=== PATIENT | female | born 1945 | race Caucasian/White ===

== ENCOUNTER 2019-05-16 12:14 | Emergency (ER) | payer MEDICARE, SELFPAY ==
--- NOTE | 2019-05-16 12:22 | ED.GENADULT ---
HPI - General Adult General Chief complaint: Dizziness Stated complaint: lightheaded Time Seen by Provider: 05/16/19 12:23 Source: patient Mode of arrival: EMS Limitations: no limitations History of Present Illness HPI narrative: A 74 y/o female, with a PMHx of silent SZ, presents to the ED, via EMS, with c/o lightheadedness. Per EMS, pt had a near syncopal episode in the aisle at [facility]. Pt was lowered to the ground with the assistance of another customer. Upon EMS arrival, pt was diaphoretic and had an initial systolic reading in the 80s. Pt states that she feels okay now. Pt is on Keppra 2000 mg BID and follows up with Dr. Mon. Pt has been taking her medications as prescribed. Pt's last SZ occured a few months ago. She denies CP, bladder incontinence, and bowel incontinence. Related Data Allergies Allergy/AdvReac Type Severity Reaction Status Date / Time No Known Allergies Allergy Unverified 10/27/15 10:27 Review of Systems Review of Systems: All systems reviewed & are unremarkable except as noted in HPI and below Constitutional: Comments: Reports: lightheadedness, diaphoresis Cardiovascular: Cardiovascular: Denies chest pain Gastrointestinal: Comments: Denies: bowel incontinence Genitourinary: Comments: Denies: bladder incontinence PMF Past Medical History Medical History (Updated 05/16/19 @ 14:57 by Deny Guan MD) Seizures Surgical History Surgical History (Updated 05/16/19 @ 12:46 by Ester Atkins) H/O eye surgery corneal replacement H/O right mastectomy H/O: hysterectomy Hx of tonsillectomy Social History Social History (Updated 05/16/19 @ 12:46 by Ester Atkins) Smoking status: Never smoker Gender identity (if verbalized by the patient): Female Comments PCP: Dr. Henao Exam Narrative: Exam Narrative: GENERAL: Well-appearing, well-nourished, and in no acute distress. HEAD: Normocephalic, atraumatic. EYES: PERRLA and EOMI. ENT: Nares clear, Mucous membranes moist. NECK: Supple. CHEST: Clear to auscultation. No respiratory distress. HEART: Regular rate and rhythm. No murmur heard. Normal peripheral pulses. ABDOMEN: Soft, non tender, non distended, normal active bowel sounds. EXTREMITIES: Normal range of motion. No edema. SKIN: Warm, dry, no rash. NEURO: No focal deficits. Alert and oriented x3. PSYCH: Normal mood and affect. Course Course Emergency Course: pt states she is feeling much better, advised to continue home medication ,take antibiotic as prescribed. Vital Signs Vital signs: Vital Signs Temperature 37.1 C 05/16/19 12:47 Pulse Rate 71 05/16/19 12:47 Respiratory Rate 18 05/16/19 12:47 Blood Pressure 123/50 L 05/16/19 12:47 Pulse Oximetry 99 05/16/19 12:47 Temperature 37.1 C 05/16/19 12:47 Pulse Rate 71 05/16/19 12:47 Respiratory Rate 18 05/16/19 12:47 Blood Pressure 123/50 L 05/16/19 12:47 Pulse Oximetry 99 05/16/19 12:47 Medical Decision Making Vital Signs Vital Signs: Vital Signs Temperature 37.1 C 05/16/19 12:47 Pulse Rate 71 05/16/19 12:47 Respiratory Rate 18 05/16/19 12:47 Blood Pressure 123/50 L 05/16/19 12:47 Pulse Oximetry 99 05/16/19 12:47 Temperature 37.1 C 05/16/19 12:47 Pulse Rate 71 05/16/19 12:47 Respiratory Rate 18 05/16/19 12:47 Blood Pressure 123/50 L 05/16/19 12:47 Pulse Oximetry 99 05/16/19 12:47 Lab Data Result diagrams: 05/16/19 13:02 05/16/19 13:02 Labs: Lab Results 05/16/19 05/16/19 05/16/19 Range/Units 13:02 13:02 13:02 WBC 9.5 (4.5-10.0) K/mm3 RBC 3.89 L (4.2-5.4) M/mm3 Hgb 12.3 (12.0-15.0) g/dL Hct 38.3 (37.0-47.0) % MCV 98.5 (80-100) fl MCH 31.6 (26-34) pg MCHC 32.1 (32-36) g/dl RDW 11.3 L (11.5-14.5) % Plt Count 271 (150-375) k/mm3 MPV 9.6 (7.4-10.4) fl Immature Gran % (Auto) 0.2 (0-0.5) % Neut % (Auto) 76.0 H (45.5-73.1) % Lymph % (Auto) 1
--- NOTE | 2019-05-16 12:33 | ECG_ITS ---
Measurements Intervals [place] Rate: 66 P: 33 SC: 140 QRS: -1 QRSD: 108 T: 34 QT: 417 QTc: 438 Interpretive Statements SINUS RHYTHM WITH MARKED SINUS ARRHYTHMIA NORMAL ECG Electronically Signed On 05-16-2019 13:49:40 CDT by Niko Gatica D.O.
[2019-05-16 12:47] VITALS: BP 123/50; PULSE 71; RESP 18; TEMP 37.1; O2SAT 99
[2019-05-16 13:12] LABS: Basophils Absolute Auto 0.1 K/mm3 (0.0-0.1); Basophils Percent Auto 0.5 % (0.2-1.2); Eosinophils Absolute Auto 0.3 K/mm3 (0-0.3); Eosinophils Percent Auto 2.7 % (0-4.4); Hematocrit 38.3 % (37.0-47.0); Hemoglobin 12.3 g/dL (12.0-15.0); Immature Granulocyte Absolute 0.02 K/mm3 (0.00-0.031); Immature Granulocyte Percent A 0.2 % (0-0.5); Lymphocytes Absolute Auto 1.19 K/mm3 (0.9-3.2); Lymphocytes Percent Auto 12.5 % (18.3-44.2); Mean Corpuscular HGB Conc 32.1 g/dl (32-36); Mean Corpuscular Hemoglobin 31.6 pg (26-34); Mean Corpuscular Volume 98.5 fl (80-100); Mean Platelet Volume 9.6 fl (7.4-10.4); Monocytes Absolute Auto 0.8 K/mm3 (0.1-0.6); Monocytes Percent Auto 8.1 % (2.6-8.5); Neutrophils Absolute Auto 7.3 K/mm3 (1.3-6.7); Platelet Count Result 271 k/mm3 (150-375); Red Blood Count 3.89 M/mm3 (4.2-5.4); Red Cell Distribution Width 11.3 % (11.5-14.5); White Blood Count 9.5 K/mm3 (4.5-10.0)
[2019-05-16 13:25] LABS: Alanine Aminotransferase 60 U/L (4-35); Albumin Level 4.3 g/dL (3.5-5.1); Alkaline Phosphatase 88 U/L (38-126); Aspartate Amino Transferase 49 U/L (14-36); Bilirubin,Total 0.5 mg/dL (0.2-1.3); Blood Urea Nitrogen 14 mg/dL (7-17); Calcium 9.2 mg/dL (8.4-10.2); Carbon Dioxide 31 mmol/L (22-30); Chloride 101 mmol/L (98-107); Estimated CRCL calculation 50 ml/min; Estimated Glomerular Filt Rate > 60; Glucose 119 mg/dL (65-105); Potassium 4.3 mmol/L (3.4-5.0); Sodium 136 mmol/L (137-145)
--- NOTE | 2019-05-16 13:29 | PC.NURSE ---
Not enough urine to run UA. Pt. denies having to void. Pt. to be straight cathed, primary RN and techs aware.
[2019-05-16 14:02] LABS: Add Urine Microscopic? YES; Appearance Urine Clear (Clear); Bilirubin Urine Negative (Negative); Blood Urine Negative (Negative); Calcium Oxalate Crystals Urine Present /hpf; Glucose Urine UA Negative (Negative); Hyaline Casts Urine 50+ /lpf; Ketones Urine Trace mg/dL (Negative); Leukocyte Esterase Ur Negative LEU/UL (Negative); Mucus Urine Few /lpf; Nitrate Urine Positive (Negative); Protein Urine 2+ mg/dL (Negative); RBC Urine 0-2 /hpf (0-2); Specific Grav Ur 1.027 (1.001-1.035); Squamous Epithelial Cell Urine Few /hpf (Few); WBC Urine 0-3 /hpf
[2019-05-16 14:04] LABS: Color Urine Dark Orange (Yellow)
[2019-05-16 15:29] VITALS: BP 125/51; PULSE 70; RESP 23; O2SAT 100
== END 2019-05-16 15:30 | disposition home or self-care (01) ==
PROVIDERS: Emergency Provider Family Medicine
DX: G40.909 Epilepsy, unspecified, not intractable, without status epilepticus (principal); Z90.11 Acquired absence of right breast and nipple; Z94.7 Corneal transplant status; N39.0 Urinary tract infection, site not specified
CPT/HCPCS: 36415; 80053; 81001; 85025; 93005; 99283

== ENCOUNTER → 2021-03-27 13:37 | Outpatient (CLI) | payer MEDICARE, SELFPAY ==
--- NOTE | ~2021-03-27 | DEXA_ITS ---
Bone Density Report Name: GABRIEL GUNDERSON Age: 76 Sex: Female Ethnicity: White Date of : 1945 Indication: postmenopausal; screening for osteoporosis; parental hip fracture; height loss; seizure disorder; asthma or emphysema; hysterectomy; Referring Provider: GUILLERMO Study: Bone densitometry was performed. Exam Date: March 27, 2021 Accession number: [id number] Bone Density: Region BMD T-score Z-score Classification AP Spine (L1, L4) 1.026 -0.1 2.5 Normal Femoral Neck (Left) 0.699 -1.4 0.9 Osteopenia Total Hip (Left) 0.715 -1.9 0.1 Osteopenia Femoral Neck (Right) 0.698 -1.4 0.9 Osteopenia Total Hip (Right) 0.723 -1.8 0.2 Osteopenia Total Hip Mean 0.719 -1.9 0.2 Osteopenia World Health Organization criteria for BMD impression classify patients as: Normal (T-score at or above -1.0), Osteopenia (T-score between -1.0 and -2.5), or Osteoporosis (T-score at or below -2.5). 10-year Fracture Risk(1): Major Osteoporotic Fracture 20% Hip Fracture 11% Reported Risk Factors: [place] (), Neck BMD=0.698, BMI=25.8, parental fracture (1) FRAX(R) Version 3.08. Fracture probability calculated for an untreated patient. Fracture probability may be lower if the patient has received treatment. Clinical Information Provided by Patient: Parent has had a hip fracture Has used the following medications: Vitamin D, Calcium, MTV Has the following medical conditions: Any Seizure Disorders, Asthma or Emphysema, Hysterectomy, breast cancer age 41, pre cancer ovaries and uterus Patient maximum height was 65.75 Menopause Age: 43 No regular weight bearing exercise Does not regularly consume dairy products Drinks caffeinated beverages Onset of menses at age 9 Number of children 3 Impression: The patient has low bone mass, based on the Left Total Hip T-score. The patient has an estimated ten-year risk of hip fracture of 11% and an estimated ten-year risk of major fracture of 20%, based on the WHO FRAX algorithm. The patient has risk factors, including: parental hip fracture. Discussion: BONE DENSITY IS LOW AT ONE OR MORE SKELETAL SITES. THE PATIENT'S BMD AND CLINICAL RISK FACTORS CONTRIBUTE TO THIS PATIENT'S HIGH RISK OF FRACTURE. This patient's lowest T-score is low at one or more skeletal sites. It meets the World Health Organization's (WHO) criteria for ?low bone mass? (T-score between -1.0 and -2.5). The patient's 10-year risk of hip fracture and 10 year risk of a major osteoporotic fracture as calculated by FRAX exceeds the threshold where pharmacological therapy is recommended by the National Osteoporosis Foundation (NOF). However, all treatment decisions require clinical judgment and consideration of individual patient factors, including patient preferences, comorbidities, previous drug use, risk fa
--- NOTE | ~2021-03-27 | MM_ITS ---
EXAMINATION: MM screening adrien LT w nicolle HISTORY: Screening left mammogram history of right mastectomy TECHNIQUE: Craniocaudal and mediolateral oblique 3-D tomosynthesis images were obtained and synthetic 2-D images were generated. CAD analysis was submitted and interpreted. COMPARISON: No prior mammogram is available for comparison at this institution. BREAST PARENCHYMAL COMPOSITION: There are scattered areas of fibroglandular density. FINDINGS: Scattered benign-appearing calcifications are present. There is no evidence of suspicious m ass, calcification, or architectural distortion to suggest malignancy. There has been no suspicious i nterval change. IMPRESSION: 1. No mammographic evidence of malignancy. 2. Recommend routine screening mammography in one year. BI-RADS Category 2: Benign finding(s). Reviewed, dictated and finalized at location A. NSTITCH SEWING MACHINE OPERATOR
== END ==
DX: Z12.31 Encounter for screening mammogram for malignant neoplasm of breast (principal); Z78.0 Asymptomatic menopausal state; M85.851 Other specified disorders of bone density and structure, right thigh; M85.852 Other specified disorders of bone density and structure, left thigh
CPT/HCPCS: 77063; 77067; 77080

== ENCOUNTER 2022-03-14 16:49 | Observation (INO) | payer MEDICARE, SELFPAY ==
[2022-03-14] VITALS (28 sets, daily range): BP systolic 100–171; BP diastolic 53–113; PULSE 57–80; RESP 10–19; TEMP 36.2–36.8; O2SAT 94–100; BMI 27.7
--- NOTE | ~2022-03-14 | XR_ITS ---
XR chest 2V DATE: 03/14/2022 17:39 INDICATION: Unsteady gait, dizziness x1 day TECHNIQUE: AP and lateral views COMPARISON: None FINDINGS: Normal heart size. Aortic arch calcification. No hilar or mediastinal enlargement. No pulmo nary infiltrate or consolidation, pleural effusion or pulmonary vascular congestion or pneumothorax i s detected. Surgical clips overlying right breast and axillary area. IMPRESSION: No active cardiopulmonary disease Aortic atherosclerosis Reviewed, dictated and finalized at location A. E ANALYST
--- NOTE | ~2022-03-14 | CT_ITS ---
EXAMINATION: CTA BRAIN/CAROTID DATE: 03/14/2022 18:41 INDICATION: Dizziness, weakness and unsteady gait. TECHNIQUE: Computed tomographic angiography (CTA) of the head and neck was performed with 100 mL Omni paque-350 intravenous contrast. Multiplanar reconstructions and maximum intensity projection 3D-recon structions of the carotid arteries and of the intracranial arteries were created by the technologist on a separate workstation. Precontrast CT of the head was also obtained. Automated exposure control and iterative reconstruction technique were employed.The dose-length product was 1672.45 mGy-cm. COMPARISON: None. FINDINGS: Carotid arteries: Visualized aortic arch is normal in caliber with no dissection. There is small amount of atherosclero tic plaque with 0% stenosis of the right carotid bulb relative to normal distal artery lumen diameter (NASCET criteria). There is small amount of atherosclerotic plaque with 0% stenosis of the left suazo tid bulb relative to normal distal artery lumen diameter. Mild biapical pleural-parenchymal scarring. Calcified mediastinal lymph node consistent with old granulomatous disease. There is a superior medi astinum is otherwise unremarkable. Cervical soft tissues are unremarkable. Severe cervical spondylosi s with 2 mm anterolisthesis of C3 on C4 with fusion across the right C3-C4 uncovertebral and facet luis carlos ints. Head: No acute intracranial hemorrhage, acute infarction or abnormal extra axial fluid collection. Prominen t streak artifact related to a metallic likely embolization coil located along the lateral margin of the distalmost left internal carotid artery. There is minimal scattered white matter hypoattenuation consistent with chronic small vessel ischemic disease. Symmetric prominence of the sulci and subarach noid spaces overlying the convexities consistent with mild to moderate age-appropriate diffuse cerebr al volume loss. Ventricles are normal and symmetric. No mass/mass effect. Changes of bilateral intrao cular lens replacement. The orbits, paranasal sinuses and mastoid air cells are normal. No abnormally enhancing brain lesions on the CT angiogram portion of the examination. Intracranial arteries Mild atherosclerotic plaque with no hemodynamically significant stenosis at the bilateral carotid sip hons. 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 Normal patent bilateral P1 se gments arise from the normal basilar artery. Bilateral A1 segments are also patent. A portion of the distalmost left internal carotid artery is obscured by streak artifact from the embolization coils. N o aneurysms identified. No evident hemodynamically significant stenosis identified. Cerebral arteria l arborization appears symmetric. IMPRESSION: 1. Small amount of atherosclerotic plaque with 0% stenosis of the right and left carotid bulbs relati ve to normal distal artery lumen diameter (NASCET criteria). 2. Likely embolization coil in the region of the distal most supraclinoid portion of the left interna l carotid artery. Otherwise unremarkable cerebral CT angiogram. 3. Age-related changes in the brain. No acute intracranial process. Reviewed, dictated and finalized at location A. SER SALES IMPRESSION: 1. Small amount of atherosclerotic plaque with 0% stenosis of the right and lef t carotid bulbs relative to normal distal artery lumen diameter (NASCET criteri a). 2. Likely embolization coil in the region of the distal most supraclinoid porti on of the left internal carotid artery. Otherwise unremarkable cerebral CT colleen ogram. 3. Ag
--- NOTE | 2022-03-14 16:56 | ECG_ITS ---
Measurements Intervals [place] Rate: 63 P: 40 ND: 138 QRS: 10 QRSD: 98 T: 47 QT: 395 QTc: 407 Interpretive Statements SINUS RHYTHM BASELINE ARTIFACT- II, III, AVR, AVL, AVF NORMAL ECG COMPARED TO ECG 05/16/2019 12:21:18 NO SIGNIFICANT CHANGES Electronically Signed On 03-14-2022 20:50:43 SCREEN PRINTING MACHINE OPERATOR HELPER by Niko Gatica D.O.
--- NOTE | 2022-03-14 17:19 | ED.GENADULT ---
HPI - General Adult General Chief complaint: Weakness <Milind Vargas MD - Last Filed: 03/14/22 19:09> Stated complaint: weakness <Milind Varags MD - Last Filed: 03/14/22 19:09> Time Seen by Provider: 03/14/22 17:00 <Milind Vargas MD - Last Filed: 03/14/22 19:09> History of Present Illness HPI narrative: 77-year-old female presenting to the emergency department for evaluation of dizziness. Patient reports that yesterday morning she woke up she was having some mild symptoms but since then the dizziness has continued to worsen. Patient states that she does have a sensation of movement and that it is worsened to the point where she has difficulty ambulating. Patient states when she is lying still she has no complaints. Patient denies any associated nausea vomiting. Patient denies any abdominal pain constipation diarrhea or pain with urination. Patient reports she does not normally drink much water but she has been eating and drinking at her normal baseline. Patient denies any associated numbness or weakness. Patient denies any falls or injuries. Patient reports she does have a history of an aneurysm. <Milind Vargas MD - Last Filed: 03/14/22 19:09> Related Data Home medications: Home Medications Medication Instructions Recorded Confirmed No Home Medications 10/07/21 10/07/21 <Milind Vargas MD - Last Filed: 03/14/22 19:09> Allergies/adverse reactions: Allergies Allergy/AdvReac Type Severity Reaction Status Date / Time No Known Allergies Allergy Unverified 10/07/21 11:07 <Milind Vargas MD - Last Filed: 03/14/22 19:09> Review of Systems Review of Systems: CONSTITUTIONAL: Denies fever, chills, or sweats. EYES: Denies visual changes, redness, or discharge. ENT: Denies rhinorrhea, congestion, sore throat, or otalgia. CARDIOVASCULAR: Denies chest pain, palpitations, or edema. RESPIRATORY: Denies cough or dyspnea. GASTROINTESTINAL: Denies abdominal pain, nausea, vomiting, or diarrhea. GENITOURINARY: Denies dysuria or hematuria. SKIN: Denies rash or itching. MUSCULOSKELETAL: Denies back pain, joint pain, or myalgia. NEUROLOGIC: Denies headache, numbness, or weakness. See HPI <Milind Vargas MD - Last Filed: 03/14/22 19:09> [facility] Past Medical History Medical History: Medical History (Updated 03/14/22 @ 19:08 by Mliind Vargas MD) History of stress test (~05/2021) History of torn meniscus of knee (~1999) Seizures <Milind Vargas MD - Last Filed: 03/14/22 19:09> Surgical History Surgical History: Surgical History (Updated 06/24/21 @ 10:56 by Larissa Cabrera MA) H/O eye surgery corneal replacement H/O right mastectomy (~08/1986) H/O: hysterectomy (~09/1989) History of appendectomy (~2018) History of cholecystectomy (~01/2016) Hx of tonsillectomy S/P coil embolization of cerebral aneurysm (~08/2012) <Milind Vargas MD - Last Filed: 03/14/22 19:09> Social History Social History: Social History (Updated 06/24/21 @ 10:57 by Larissa Cabrera MA) Smoking status: Never smoker Alcohol intake: never Substance use: never Gender identity (if verbalized by the patient): Female <Milind Vargas MD - Last Filed: 03/14/22 19:09> Exam Narrative: APPEARANCE: Well appearing, no pain, no distress, well-nourished. HEAD: normocephalic, atraumatic. EYES: PERRLA/EOMI, conjunctivae clear. NOSE: Normal no drainage EARS:TMS clear with good light reflex. THROAT: Pharynx clear, no exudate. NECK: Supple. No adenopathy, no masses. RESPIRATORY: Airway patent, respirations nonlabored. Clear to auscultation bilaterally, no rales, rhonchi, wheezing. CARDIOVASCULAR: Regular rate and rhythm without murmurs rubs or gallops. ABDOMINAL: Soft, nontender, nondistended, normal bowel sounds MUSCULOSKELETAL: Moves all extremities. Strength/ROM intact, No edema, No calf tenderness. NEURO: Alert. Cranial nerves II through XII intact. Grossly i
[2022-03-14] MEDS: SODIUM CHLORIDE 0.9% IV 1,000 ML 500 ML IV CONT (17:27)
[2022-03-14] MEDS: MECLIZINE HCL 25 MG TABLET PO (17:29)
[2022-03-14 17:54] LABS: Basophils Absolute Auto 0.1 K/mm3 (0.0-0.1); Basophils Percent Auto 1.1 % (0.2-1.2); Eosinophils Absolute Auto 0.2 K/mm3 (0-0.3); Eosinophils Percent Auto 3.8 % (0-4.4); Hemoglobin 10.7 g/dL (12.0-15.0); Immature Granulocyte Absolute 0.01 K/mm3 (0.00-0.031); Immature Granulocyte Percent A 0.2 % (0-0.5); Lymphocytes Percent Auto 31.3 % (18.3-44.2); Mean Corpuscular HGB Conc 31.5 g/dl (32-36); Mean Corpuscular Hemoglobin 31.3 pg (26-34); Mean Corpuscular Volume 99.4 fl (80-100); Mean Platelet Volume 9.6 fl (7.4-10.4); Monocytes Absolute Auto 0.5 K/mm3 (0.1-0.6); Monocytes Percent Auto 7.8 % (2.6-8.5); Neutrophils Absolute Auto 3.6 K/mm3 (1.3-6.7); Neutrophils Percent Auto 55.8 % (45.5-73.1); Platelet Count Result 270 k/mm3 (150-375); Red Blood Count 3.42 M/mm3 (4.2-5.4); Red Cell Distribution Width 11.8 % (11.5-14.5); White Blood Count 6.4 K/mm3 (4.5-10.0)
[2022-03-14 18:00] LABS: Appearance Urine Clear (Clear); Bilirubin Urine Negative (Negative); Blood Urine Negative (Negative); Color Urine Yellow (Yellow); Glucose Urine UA Negative (Negative); Ketones Urine Negative (Negative); Leukocyte Esterase Ur Negative LEU/UL (Negative); Nitrate Urine Negative (Negative); Protein Urine Negative (Negative); Specific Grav Ur 1.015 (1.001-1.035); Urobilinogen Urine 0.2 mg/dL (<2.0)
[2022-03-14 18:01] LABS: Add Urine Microscopic? NO
[2022-03-14 18:04] LABS: Alanine Aminotransferase 25 U/L (6-35); Albumin Level 3.8 g/dL (3.5-5.1); Alkaline Phosphatase 75 U/L (38-126); Anion Gap 1 mmol/L (8-16); Aspartate Amino Transferase 31 U/L (14-36); Bilirubin,Total 0.2 mg/dL (0.2-1.3); Blood Urea Nitrogen 14 mg/dL (7-17); Calcium 8.1 mg/dL (8.4-10.2); Carbon Dioxide 28 mmol/L (22-30); Chloride 103 mmol/L (98-107); Estimated Glomerular Filt Rate 60; Glucose 96 mg/dL (65-110); Potassium 4.2 mmol/L (3.4-5.0); Sodium 132 mmol/L (137-145)
[2022-03-14 18:27] LABS: Influenza A QL RT-PCR Negative (Negative); Influenza B QL RT-PCR Negative (Negative); RSV RNA, RT-PCR Negative (Negative); SARS-CoV-2 RNA PCR Negative
--- NOTE | 2022-03-14 21:00 | PM.IMHP ---
H&P: HPI History of Present Illness Date/Time: 03/14/22 21:00 Chief Complaint: Dizziness Narrative: This is a 77-year-old female with past medical history significant for seizure disorder, degenerative joint disease. Patient presents to the emergency room after having several episodes throughout the day on unstable gait, feeling lightheaded, however patient denies any vertigo, no nausea, no vomiting, no changes to her vision, no syncope, no near syncope,no headaches, no focal sensorimotor deficit, no fevers, no rigors, no chills, no no pain or burning with urination, has been in her usual state of health up until this episode. Patient also noted to be unstable on her gait states walking like a drunk preliminary workup was significant for A chest x-ray was reported as: FINDINGS: Normal heart size. Aortic arch calcification. No hilar or mediastinal enlargement. No pulmonary infiltrate or consolidation, pleural effusion or pulmonary vascular congestion or pneumothorax is detected. Surgical clips overlying right breast and axillary area. IMPRESSION: No active cardiopulmonary disease Aortic atherosclerosis? Patient tested negative for influenza type A, influenza type B RSV and COVID-19 Review of Systems Review of Systems: Gait instability, lightheadedness. Constitutional: Constitutional: Denies chills, Denies fatigue, Denies fever(s), Denies malaise, Denies night sweats, Denies poor appetite and Denies weakness Eyes: Eyes: Denies change in vision, Denies diplopia, Denies floaters, Denies loss of peripheral vision, Denies loss of vision, Denies other visual disturbances and Denies spots in vision ENT: Denies dysphagia, Reports dizziness, Denies nasal congestion, Denies nasal discharge, Denies odynophagia and Reports disequilibrium Cardiovascular: Cardiovascular: Denies chest pain, Denies leg edema, Reports lightheadedness, Denies radiating jaw, neck or arm pain and Denies palpitations Respiratory: Respiratory: Denies chest congestion, Denies cough, Denies pain on inspiration, Denies dyspnea and Denies dyspnea on exertion Gastrointestinal: Gastrointestinal: Denies abdominal pain, Denies dyspepsia, Denies diarrhea, Denies nausea and Denies vomiting Genitourinary: Genitourinary: Denies dysuria Musculoskeletal: Musculoskeletal: Denies joint swelling and Denies muscle weakness Integumentary/Breasts: Skin/Breast: Denies rash Neurologic: Reports dizziness, Denies focal weakness and Denies Sensory deficit (Neuro) Psychiatric: Psychiatric: Reports no additional psychiatric complaints and Reports as per HPI Endocrine: Endocrine: Denies cold intolerance, Denies flushing, Denies heat intolerance, Denies polyphagia, Denies polydipsia and Denies palpitations Hematologic/Lymphatic: Hematologic/Lymphatic: Reports no additional hematologic/lymphatic complaints and Reports as per HPI Allergic/Immunologic: Allergic/Immunologic: Reports no additional allergic/immunologic complaints and Reports as per HPI PMFSH Past Medical History Medical History (Updated 03/15/22 @ 00:14 by Romulo Carballo MD) History of stress test (~05/2021) History of torn meniscus of knee (~1999) Seizures Surgical History Surgical History (Updated 06/24/21 @ 10:56 by Larissa Cabrera MA) H/O eye surgery corneal replacement H/O right mastectomy (~08/1986) H/O: hysterectomy (~09/1989) History of appendectomy (~2018) History of cholecystectomy (~01/2016) Hx of tonsillectomy S/P coil embolization of cerebral aneurysm (~08/2012) Family History Family History (Updated 03/14/22 @ 23:08 by Don Guthrie RN) Mother Asthma History of blood clots Grandparent Diabetes mellitus Social History Social History (Updated 06/24/21 @ 10:57 by Larissa Cabrera MA) Smoking status: Never smoker Second hand tobacco smoke exposure: Yes Alcohol intake: never Substance use: never Substance use type: does not use Lack of Transportation: No Lack of Fo
--- NOTE | 2022-03-14 22:32 | ADMGEN ---
This patient, Catarina Lai, was admitted to [facility] Surg Room 331-02. Patient/family oriented to hospital policies and general routines including ID bracelet, bed and alarms, visiting hours, pain management, procedures, bathroom and other care routines, personal items, smoking policy, room service/diet, and visiting hours. Information on how to activate the Rapid Response Team has been discussed. Patient/Family are encouraged to report perceived risks to care and to ask questions if they do not understand what they are told or what they should do.
[2022-03-14] MEDS: levETIRAcetam 500 MG TABLET 2000 MG PO (23:43)
[2022-03-14] MEDS: lamoTRIgine 100 MG TABLET PO (23:44)
[2022-03-15] VITALS (13 sets, daily range): BP systolic 121–134; BP diastolic 51–80; PULSE 57–88; RESP 16–18; TEMP 36.2–36.5; O2SAT 97–99
--- NOTE | 2022-03-15 | ECHO_ITS ---
Patient Info Name: Catarina Lai Age: 77 years : 1945 Gender: Female Ht: 63 in Wt: 156 lbs BSA: 1.79 m2 HR: 62 bpm BP: 121 / 51 mmHg Heart Rhythm: Sinus Rhythm Technical Quality: Good Exam Date: 03/15/2022 9:25 AM Exam Location: [facility] Pulmonary Patient Status: Inpatient Admit Date: 03/14/2022 Staff Ordering Physician: Michelle Mcneill APRN Attending Provider: Romulo Carballo MD Referring Physician: Charito PHAN; Exam Type: CA echo doppler w bubble study Study Info Complete two-dimensional, color flow and Doppler transthoracic echocardiogram is performed with agitated saline. Contrast/Agitated Saline Contrast/Ag. Saline: Agitated Saline Amount: 8.00 ml Summary 1. Left ventricular chamber dimension is normal. 2. Left ventricular systolic function is normal, estimated at 60-65%. 3. The left ventricular diastolic function is normal. 4. Right ventricular systolic function is normal. 5. Intact interatrial septum visualized by color flow and agitated saline imaging. Negative bubble study. 6. There is trace mitral valve regurgitation. 7. There is mild tricuspid valve regurgitation. Left Ventricle Left ventricular chamber dimension is normal. Left ventricular systolic function is normal, estimated at 60-65%. There is no increased left ventricular wall thickness. The left ventricular diastolic function is normal. Right Ventricle Right ventricular chamber dimension is normal. Right ventricular systolic function is normal. Left Atria Left atrial chamber dimension is normal. Right Atria Right atrial chamber dimension is normal. Atrial Septum Intact interatrial septum visualized by color flow and agitated saline imaging. Negative bubble study. Aortic Valve The aortic valve is probable trileaflet. There is no aortic valve stenosis. There is no aortic valve regurgitation. Pulmonic Valve The pulmonic valve is not well visualized. Mitral Valve The mitral valve has normal leaflets. There is no mitral valve stenosis. There is trace mitral valve regurgitation. Tricuspid Valve The tricuspid valve leaflets are normal. There is mild tricuspid valve regurgitation. Pericardium/Pleural There is no pericardial effusion. Inferior Vena Cava Normal inferior vena cava with >50% collapse upon inspiration consistent with normal right atrial pressure. Aorta The aortic root size at the sinus of Valsalva is normal. Left Ventricular Outflow Tract Name Value Normal LVOT 2D LVOT Diameter 2.0 cm LVOT Doppler LVOT Peak Gradient 4 mmHg LVOT Mean Gradient 2 mmHg LVOT VTI 21 cm LVOT VTI/AV VTI Ratio 0.6 LVOT Stroke Volume 69 ml LVOT CO 4.2 l/min LVOT CI 2.4 l/min/m2 Pulmonic Valve Name Value Normal -------
[2022-03-15] MEDS: FLUTICASONE/SALMETEROL 115-21 MCG INHALER 1 PUFF 2 PUFF INHALATION ×2 (08:26→21:22)
[2022-03-15] MEDS: DICLOFENAC SOD 25 MG TABLET.EC 50 MG PO ×3 (09:10→16:56)
[2022-03-15] MEDS: FLUOROMETHOLONE 0.1% OP SUSP 5 ML BTL 1 DROP RIGHT EYE (09:11)
[2022-03-15] MEDS: lamoTRIgine 100 MG TABLET PO ×3 (09:11→16:56)
[2022-03-15] MEDS: levETIRAcetam 500 MG TABLET 2000 MG PO ×2 (09:12→20:56)
[2022-03-15] MEDS: MECLIZINE HCL 25 MG TABLET PO ×2 (09:18→20:56)
[2022-03-15 09:25] LABS: Hematocrit 33.8 % (37.0-47.0); Hemoglobin 10.9 g/dL (12.0-15.0); Mean Corpuscular HGB Conc 32.2 g/dl (32-36); Mean Corpuscular Hemoglobin 31.4 pg (26-34); Mean Corpuscular Volume 97.4 fl (80-100); Mean Platelet Volume 9.5 fl (7.4-10.4); Platelet Count Result 278 k/mm3 (150-375); Red Blood Count 3.47 M/mm3 (4.2-5.4); Red Cell Distribution Width 11.8 % (11.5-14.5); White Blood Count 4.7 K/mm3 (4.5-10.0)
[2022-03-15 09:36] LABS: Anion Gap 3 mmol/L (8-16); Blood Urea Nitrogen 10 mg/dL (7-17); Calcium 8.7 mg/dL (8.4-10.2); Carbon Dioxide 28 mmol/L (22-30); Chloride 109 mmol/L (98-107); Estimated CRCL calculation 42 ml/min; Estimated Glomerular Filt Rate 60; Glucose 101 mg/dL (65-110); Potassium 4.2 mmol/L (3.4-5.0); Sodium 140 mmol/L (137-145)
[2022-03-15 10:04] LABS: Vitamin D 25 Hydroxy 49.7 ng/mL
[2022-03-15 10:50] LABS: Folic Acid > 20.0 ng/mL (2.76->20)
[2022-03-15 13:56] LABS: Free T4 Free Thyroxine Reflex 1.06 ng/dL (0.78-2.19)
--- NOTE | 2022-03-15 15:31 | PM.IMPN ---
Progress Note: A&P Assessment and Plan (1) Dizziness: Code(s): R42 - Dizziness and giddiness Status: Acute Assessment and Plan: patient presented to the ED with c/o unsteady gait, feeling lightheaded and dizzy. The symptoms started on the day of admission. Family reports the patient appeared confused and had slurred/garbled speech. H/o cerebral aneurysm with coiling. 03/14/22 CT head & neck patent left aneurysm coil. No dissection, stenosis, or occlusion. MRI of the brain ordered and pending confirmation that the aneurysm coil is MRI compatible. Echocardiogram without right to left shunt. Consult PT/OT for evaluation. Orthostatic vitals daily Continue PRN meclizine. continue to monitor (2) Primary osteoarthritis of knees, bilateral: Code(s): M17.0 - Bilateral primary osteoarthritis of knee Status: Chronic Assessment and Plan: Tylenol as needed (3) Seizures: Code(s): R56.9 - Unspecified convulsions Status: Chronic Assessment and Plan: Chronic. Continue Keppra and Lamictal at home doses. Patient does not appear postictal. Check Keppra level. Plan CODE STATUS: FULL CODE Discharge disposition: home in 1-2 days Time Spent With Patient Time: All questions answered to the best of my ability. Time with patient: 25 - 35 minutes Subjective Date/time seen: 03/15/22 15:31 Interval history: Patient found sitting up in the bed. She reports feeling better today. She had some dizziness this morning that improved with meclizine. She ambulated to the bathroom and reports her gait was significantly improved. Her daughter is at bedside and reports the patient was slurring her speech and confused at home yesterday. She denies unilateral extremity weakness, paresthesia or vision changes. Her speech is clear and mentation is at baseline per patient and family. Review of Systems Review of Systems: All systems reviewed & are unremarkable except as noted in HPI and below Exam Narrative: General: No acute distress.? Well-developed older adult female sitting up in bed. Mental Status/Psych: Awake, alert and oriented x3. Speech clear and appropriate. Expressive mood and affect. Pleasant and cooperative. Skin: fair, warm, dry and intact without rashes or lesions. No open wounds. Good turgor.? HEENT: Normocephalic. Sclera is non-icteric. EOM intact. PERRL. No nystagmus. Grossly normal hearing. Oral mucosa pink and moist. Tongue midline. Oropharynx within normal limits. Neck: Supple. Thyroid without nodularity. Trachea midline. No JVD. Heart: S1 and S2 regular rate and rhythm. No murmurs, gallops, or rubs auscultated. Chest: Respirations even and unlabored. Lung sounds are clear to auscultation in all lobes bilaterally without wheezes, rhonchi, or rales. Abdomen: Soft, round and non-tender to palpation.? Bowel sounds present in all 4 quadrants. Extremities:? Grossly normal ROM all extremities. No edema. Radial and dorsalis pedis pulses +2 bilaterally. Neurological: No facial droop. No pronator drift. Intact finger to nose and heel to hernadez bilaterally. Cranial nerves 2-12 grossly intact.? Muscle strength 5/5 bilaterally and equal. No tremors or fasciculations. DTRs not assessed. Objective Data Vital Signs Vital Signs: Vital Signs - 24 hr 03/14/22 16:51 03/14/22 16:56 03/14/22 17:00 Temperature 98.0 F Pulse Rate 68 76 67 Respiratory Rate 16 Blood Pressure 156/69 H 156/69 H 171/79 H Pulse Oximetry 100 Oxygen Delivery Room Air 03/14/22 17:00 03/14/22 18:08 03/14/22 18:10 Temperature 98.2 F Pulse Rate 80 63 64 Respiratory Rate 15 10 L Blood Pressure 141/69 H 150/57 H Pulse Oximetry 100 100 Oxygen Delivery 03/14/22 18:15 03/14/22 18:46 03/14/22 17:30 Temperature 98.2 F Pulse Rate 62 71 70 Respiratory Rate 17 11 L 16 Blood Pressure 141/69 H Pulse Oximetry 100 95 100 Oxygen Delivery 03/14/22 19:00 03/14/22 19:15 03/14/22 19:23 Temp
[2022-03-15 20:45] LABS: Total Triiodothyronine (T3) 1.14 NG/ML (0.97-1.69)
[2022-03-16] VITALS (7 sets, daily range): BP systolic 113–122; BP diastolic 54–64; PULSE 59–103; RESP 18; TEMP 36.4; O2SAT 97–98
[2022-03-16] MEDS: DICLOFENAC SOD 25 MG TABLET.EC 50 MG PO ×2 (08:27→12:14)
[2022-03-16] MEDS: FLUOROMETHOLONE 0.1% OP SUSP 5 ML BTL 1 DROP RIGHT EYE (08:27)
[2022-03-16] MEDS: lamoTRIgine 100 MG TABLET PO ×2 (08:28→12:14)
[2022-03-16] MEDS: levETIRAcetam 500 MG TABLET 2000 MG PO (08:28)
[2022-03-16] MEDS: FLUTICASONE/SALMETEROL 115-21 MCG INHALER 1 PUFF 2 PUFF INHALATION (09:15)
--- NOTE | 2022-03-16 14:31 | PM.DS ---
DS: Admitting Diagnosis Discharge Date 03/16/2022 1432 Admitting Diagnosis Dizziness H/O seizure disorder H/O cerebral aneurysm DS: Discharge Diagnosis Discharge Diagnosis (1) Dizziness: Code(s): R42 - Dizziness and giddiness Status: Resolved Assessment and Plan: patient presented to the ED with c/o unsteady gait, feeling lightheaded and dizzy. The symptoms started on the day of admission. Family reported the patient appeared confused and had slurred/garbled speech. H/o cerebral aneurysm with coiling. 03/14/22 CT head & neck patent left aneurysm coil. No dissection, stenosis, or occlusion. MRI of the brain ordered and pending confirmation that the aneurysm coil is MRI compatible. Echocardiogram without right to left shunt. Consult PT/OT for evaluation and home health recommended. Orthostatic vitals - positive on admission and patient was treated with IV fluids. Treated with PRN meclizine. Monitored telemetry and SR with PACs noted. (2) Seizures: Code(s): R56.9 - Unspecified convulsions Status: Chronic Assessment and Plan: Chronic. Continue Keppra and Lamictal at home doses. Patient does not appear postictal. Keppra level pending. (3) Primary osteoarthritis of knees, bilateral: Code(s): M17.0 - Bilateral primary osteoarthritis of knee Status: Chronic Assessment and Plan: Tylenol as needed (4) Elevated TSH: Code(s): R79.89 - Other specified abnormal findings of blood chemistry Status: Acute Assessment and Plan: TSH was 6.7 and elevated, but free T4 and total T3 were within normal limits. Repeat thyroid panel in 2-4 weeks when she is no longer hospitalized is warranted. DS: Summary Hospital Course Reason for hospitalization: Dizziness, rule out stroke Hospital Course: Catarina Lia is a 77-year-old female with past medical history significant for cerebral aneurysm s/p coil embolization, seizure disorder, and degenerative joint disease.? She presented to the emergency room after having several episodes of unstable gait and feeling lightheaded. She denied vertigo sensation, nausea, vomiting, vision changes, syncope, near syncope, loss of consciousness, headache, focal sensorimotor deficit, fevers, rigors, chills, or dysuria. She reports being in her usual state of health up until this episode.? She describes her gait as walking like a drunk . In the ED, preliminary workup showed positive orthostatic BP sitting to standing. CBC and CMP were unremarkable. ?A chest x-ray was negative for acute disease. CT head and neck showed prior aneurysm coil to the left and was negative for dissection, stenosis, and occlusion. Influenza type A/B RSV and COVID-19 PCR were negative. She received a liter of NS fluids in the ED. She was admitted for further TIA/stroke work-up. MRI Brain was ordered but could not be obtained and the compatibility of her aneurysm coil could not be determined. Transthoracic echocardiogram was unremarkable and negative for right to left shunt. PT/OT evaluation was completed and home health was recommended. Neuro exam was intact. Her gait and dizziness improved. She was noted to be normal sinus rhythm with PACs. Repeat orthostatic BP were negative and she reported symptoms resolved. Keppra level was pending at discharge and no episodes of grand mal or absence seizures. Risks and benefits of not having MRI was discussed with the patient as well as s/s of stroke were discussed. She was discharged home in stable condition and recommended to call her Neurologist on Thursday. Status at Discharge Cognitive/behavioral status at discharge: AOx4, baseline cognition Functional status at discharge: independent ambulation Overall status at discharge: patient is back to baseline Time Spent with Patient Time attestation: Total time spent providing and/or coordinating discharge services: Time spent: Greater than 30 minutes Exam Narrative:
[2022-03-18 18:07] LABS: Levetiracetam Keppra 46.2 mcg/mL (6.0-46.0)
== END 2022-03-16 14:55 | disposition home health service (06) ==
LOC: ANHED 21:15 → ANH3MEDSUR 23:19
PROVIDERS: Emergency Medicine; Nurse Practitioner Family; Preventive Medicine Aerospace Medicine; Admitting Provider Internal Medicine; Emergency Provider General Practice; Visit Provider Student in an Organized Health Care Education/Training Program
DX: R42 Dizziness and giddiness (principal); R56.9 Unspecified convulsions; M17.0 Bilateral primary osteoarthritis of knee; R79.89 Other specified abnormal findings of blood chemistry; I07.1 Rheumatic tricuspid insufficiency; I70.0 Atherosclerosis of aorta; R26.2 Difficulty in walking, not elsewhere classified; Z20.822 Contact with and (suspected) exposure to COVID-19; Z86.79 Personal history of other diseases of the circulatory system; Z79.51 Long term (current) use of inhaled steroids; Z79.899 Other long term (current) drug therapy
CPT/HCPCS: 36415; 70496; 70498; 71046; 80048; 80053; 80177; 81003; 82306; 82607; 82746; 84439; 84443; 84480; 85025; 85027; 87637; 93005; 93306; 94640; 96360; 96361; 96375; 97161; 97165; 99285; A9270; G0378; J7030; Q9967

== ENCOUNTER 2022-07-03 09:26 | Emergency (ER) | payer MEDICARE, SELFPAY ==
--- NOTE | ~2022-07-03 | CT_ITS ---
Non-contrast Head CT History: Head trauma COMPARISON: 03/14/2022 Technique: Axial non-contrast imaging of the brain was performed. Dose reduction technique was used on this scan by utilizing automated exposure control and iterative reconstruction technique. The dose -length product (DLP) was 605.33 mGy-cm. Findings: There is no evidence of intracranial hemorrhage, mass lesion, or acute infarct. Stable pro bable aneurysm coils noted with associated streak artifact. No definite parenchymal abnormality seen. The ventricles and subarachnoid spaces are normal in size. The calvarium appears normal. The visu alized paranasal sinuses and mastoid air cells are clear. Impression: No acute abnormality seen. Stable aneurysm coils with associated streak artifact. Reviewed, dictated and finalized at [facility]. Impression: No acute abnormality seen. Stable aneurysm coils with associated streak artifact.
[2022-07-03 09:34] VITALS: BP 114/54; PULSE 63; RESP 16; TEMP 36.7; O2SAT 99
--- NOTE | 2022-07-03 09:43 | ED.HEATRA ---
HPI - Head Injury General Chief complaint: Head Injury Stated complaint: HEAD ABRASION S/P FALL Time Seen by Provider: 07/03/22 09:43 Source: patient and family Mode of arrival: ambulatory Limitations: no limitations History of Present Illness HPI Narrative: The patient is a 77-year-old female with a history of brain aneurysms s/p, coiling, TIA, seizure disorder, presenting to the emergency department for evaluation of head trauma. Patient reports that she slipped out of bed while trying to stand due to slippery sheets. Patient states that she slid off the bed and did hit her head on a shelter supervisor that was sitting on a dresser. Patient reports scraping the forehead. She denies any loss of conscious. She reports mild headache pain that has been constant, no aggravating or relieving factors. Denies back pain, extremity pain. No hip pain. Patient has been ambulatory. Denies vision changes, nausea or vomiting. She is up-to-date on a tetanus. She denies any prodromal symptoms prior to standing such as palpitations, lightheadedness, dizziness. Related Data Home Medications Medication Instructions Recorded Confirmed Advair Diskus 1 puff inhalation BID 03/14/22 03/14/22 albuterol PRN Adequate Ventilation 03/14/22 diclofenac potassium 50 mg PO TID 03/14/22 03/14/22 fluorometholone 1 drp RIGHT EYE DAILY 03/14/22 03/14/22 lamotrigine 100 mg tablet 100 mg PO TID 03/14/22 03/14/22 levetiracetam 2,000 mg PO BID 03/14/22 03/14/22 Allergies Allergy/AdvReac Type Severity Reaction Status Date / Time No Known Allergies Allergy Verified 07/03/22 09:28 Review of Systems Review of Systems: CONSTITUTIONAL: Denies fever, chills, or sweats. EYES: Denies visual changes, redness, or discharge. ENT: Denies rhinorrhea, congestion, sore throat, or otalgia. CARDIOVASCULAR: Denies chest pain, palpitations, or edema. RESPIRATORY: Denies cough or dyspnea. GASTROINTESTINAL: Denies abdominal pain, nausea, vomiting, or diarrhea. GENITOURINARY: Denies dysuria or hematuria. SKIN: Denies rash or itching. MUSCULOSKELETAL: Denies back pain, joint pain, or myalgia. NEUROLOGIC: Reports mild headache without numbness, or weakness. PMFSH Past Medical History Medical History Cerebral arterial aneurysm s/p coil embolization History of stress test (~05/2021) History of torn meniscus of knee (~1999) Primary osteoarthritis of knees, bilateral Seizures Surgical History Surgical History H/O eye surgery corneal replacement H/O right mastectomy (~08/1986) H/O: hysterectomy (~09/1989) History of appendectomy (~2018) History of cholecystectomy (~01/2016) Hx of tonsillectomy S/P coil embolization of cerebral aneurysm (~08/2012) Family History Family History Mother Asthma History of blood clots Grandparent Diabetes mellitus Social History Social History Smoking status: Never smoker Second hand tobacco smoke exposure: Yes Alcohol intake: never Substance use: never Substance use type: does not use Lack of Transportation: No Lack of Food: Never True Current Housing: I Have Housing Concerned About Future Housing: No Difficulty Paying Gas/Electric Bills: No Difficulty Paying for Meds: No Currently Unemployed: No Education: High School Diploma/GED Difficulty w/ Childcare or Family Care: No Gender identity (if verbalized by the patient): Female Spiritual care concerns: No Exam Narrative: Nursing note and vitals reviewed. CONSTITUTIONAL: The patient appears well-developed and well-nourished. No distress. HEAD: Normocephalic, abrasion to upper forehead, small hematoma overlying forehead EYES: PERRL, EOMI, normal conjunctiva, anicteric EARS: External ears clear bilaterally, no hemotympanum MOUTH:
[2022-07-03] MEDS: ACETAMINOPHEN 500 MG TABLET 1000 MG PO (10:30)
== END 2022-07-03 11:10 | disposition home or self-care (01) ==
PROVIDERS: Emergency Provider Emergency Medicine
DX: S00.81XA Abrasion of other part of head, initial encounter (principal); S09.90XA Unspecified injury of head, initial encounter; G40.909 Epilepsy, unspecified, not intractable, without status epilepticus; M17.0 Bilateral primary osteoarthritis of knee; Z86.73 Personal history of transient ischemic attack (TIA), and cerebral infarction without residual deficits; Z94.7 Corneal transplant status; Z90.11 Acquired absence of right breast and nipple; Z90.710 Acquired absence of both cervix and uterus; W06.XXXA Fall from bed, initial encounter
CPT/HCPCS: 70450; 99284; A9270

== ENCOUNTER 2022-09-01 13:31 | Emergency (ER) | payer MEDICARE, SELFPAY ==
[2022-09-01 13:44] VITALS: BP 131/54; PULSE 77; RESP 20; TEMP 36.6; O2SAT 98
--- NOTE | 2022-09-01 13:46 | ED.URI ---
HPI - URI/Sore Throat General Chief Complaint: Upper Respiratory Infection Stated Complaint: Cough,Congestion Time Seen by Provider: 09/01/22 14:03 Source: patient, RN notes reviewed and old records reviewed Mode of arrival: ambulatory Limitations: no limitations History of Present Illness HPI Narrative: 77-year-old female presents to the [facility] with complaints of 2 weeks of cough and Sinus congestion Denies fevers, chest pain. No ankle swelling. Denies headaches. Reports facial tenderness to the maxillary and frontal sinuses. Postnasal drip. No treatment prior to arrival Treatments prior to arrival: none Related Data Home Medications Medication Instructions Recorded Confirmed albuterol sulfate 90 mcg/actuation 2 inh inhalation PRN PRN Shortness 09/01/22 09/01/22 aerosol inhaler Of Breath Or Wheezing diclofenac potassium 50 mg tablet 50 mg PO DAILY 09/01/22 09/01/22 doxycycline hyclate 50 mg capsule 50 mg PO BID 09/01/22 09/01/22 fluticasone 250 mcg-salmeterol 50 2 inh inhalation DAILY 09/01/22 09/01/22 mcg/dose blistr powdr for inhalation lamotrigine 100 mg tablet 300 mg PO DAILY 09/01/22 09/01/22 levetiracetam 1,000 mg tablet 2,000 mg PO BID 09/01/22 09/01/22 Allergies Allergy/AdvReac Type Severity Reaction Status Date / Time No Known Allergies Allergy Verified 09/01/22 13:33 Review of Systems Review of Systems: All systems reviewed & are unremarkable except as noted in HPI and below Constitutional: Constitutional: Reports no additional constitutional complaints Eyes: Eyes: Reports no additional eye complaints ENT: Reports as per HPI Cardiovascular: Cardiovascular: Reports no additional cardiovascular complaints, Denies chest pain and Denies dyspnea Respiratory: Respiratory: Reports as per HPI, Denies chest congestion, Denies cough and Denies dyspnea Gastrointestinal: Gastrointestinal: Reports no additional gastrointestinal complaints, Denies abdominal pain, Denies nausea and Denies vomiting Musculoskeletal: Musculoskeletal: Reports no additional musculoskeletal complaints Integumentary/Breasts: Skin/Breast: Reports system reviewed and no additional complaints, except as docu Neurologic: Reports system reviewed and no additional complaints, except as documented Psychiatric: Psychiatric: Reports no additional psychiatric complaints Allergic/Immunologic: Allergic/Immunologic: Reports no additional allergic/immunologic complaints PMFSH Past Medical History Medical History Cerebral arterial aneurysm s/p coil embolization History of stress test (~05/2021) History of torn meniscus of knee (~1999) Primary osteoarthritis of knees, bilateral Seizures Surgical History Surgical History H/O eye surgery corneal replacement H/O right mastectomy (~08/1986) H/O: hysterectomy (~09/1989) History of appendectomy (~2018) History of cholecystectomy (~01/2016) Hx of tonsillectomy S/P coil embolization of cerebral aneurysm (~08/2012) Family History Family History Mother Asthma History of blood clots Grandparent Diabetes mellitus Social History Social History Smoking status: Never smoker Second hand tobacco smoke exposure: Yes Alcohol intake: never Substance use: never Substance use type: does not use Lack of Transportation: No Lack of Food: Never True Current Housing: I Have Housing Concerned About Future Housing: No Difficulty Paying Gas/Electric Bills: No Difficulty Paying for Meds: No Currently Unemployed: No Education: High School Diploma/GED Difficulty w/ Childcare or Family Care: No Gender identity (if verbalized by the patient): Female Spiritual care concerns: No Comments At the time of my signature, I reviewed and agree with the
== END 2022-09-01 14:20 | disposition home or self-care (01) ==
PROVIDERS: Emergency Provider Nurse Practitioner
DX: J40 Bronchitis, not specified as acute or chronic (principal); J01.40 Acute pansinusitis, unspecified; M17.0 Bilateral primary osteoarthritis of knee; G40.909 Epilepsy, unspecified, not intractable, without status epilepticus
CPT/HCPCS: 99213; G0463

== ENCOUNTER → 2022-11-08 09:50 | Outpatient (CLI) | payer MEDICARE, SELFPAY ==
--- NOTE | ~2022-11-08 | US_ITS ---
EXAMINATION: US abdomen limited DATE: 11/08/2022 10:18 INDICATION: Right upper quadrant pain TECHNIQUE: Multiple grayscale and Doppler ultrasound images of limited portions of the abdomen were o btained. COMPARISON: None available. FINDINGS: The visualized portions of the pancreas are normal. The liver is normal with normal echogen icity and echotexture. No surface nodularity. Normal hepatopetal flow in the main portal vein. Status post cholecystectomy The common bile duct measures 5 mm. There was no sonographic Dash sign. Cysti c collection in the left upper quadrant measuring up to 10.7 cm. IMPRESSION: 10.7 cm cystic left upper quadrant mass of uncertain significance. May represent a renal or splenic c yst or artifact from bowel. Consider CT of the abdomen and pelvis with contrast, or comparison to out side studies if available, for further evaluation. Otherwise normal limited abdominal ultrasound findings, status post cholecystectomy. Reviewed, dictated and finalized at [facility]. IMPRESSION: 10.7 cm cystic left upper quadrant mass of uncertain significance. May represen t a renal or splenic cyst or artifact from bowel. Consider CT of the abdomen an d pelvis with contrast, or comparison to outside studies if available, for furt her evaluation. Otherwise normal limited abdominal ultrasound findings, status post cholecystec sarah.
== END ==
DX: R10.11 Right upper quadrant pain (principal)
CPT/HCPCS: 76705

== ENCOUNTER 2022-12-29 10:55 | Inpatient (IN) | payer MEDICARE, SELFPAY ==
--- NOTE | ~2022-12-29 | US_ITS ---
EXAMINATION: US abdomen limited DATE: 12/30/2022 08:58 INDICATION: Abnormal liver function tests. TECHNIQUE: Multiple grayscale and Doppler ultrasound images of the abdomen were obtained. COMPARISON: Ultrasound abdomen 11/08/2022 FINDINGS: The visualized portions of the head, body, and tail of the pancreas are normal. The liver i s normal without focal lesion. There is normal flow in main portal vein. The gallbladder is absent. T he common duct is normal and measures 2 mm. There is a 6.4 cm at least partially cystic mass with dep endent echoes in the abdomen. IMPRESSION: 1. 6.4 cm mass in the abdomen of uncertain etiology. The differential diagnosis includes abscess, bow el, and neoplasm. CT abdomen and pelvis with contrast is recommended. Reviewed, dictated and finalized at location E. IMPRESSION: 1. 6.4 cm mass in the abdomen of uncertain etiology. The differential diagnosis includes abscess, bowel, and neoplasm. CT abdomen and pelvis with contrast is recommended.
--- NOTE | ~2022-12-29 | XR_ITS ---
EXAMINATION: XR hip LT 2V w AP pelvis DATE: 12/29/2022 12:42 INDICATION: Left hip deformity post fall TECHNIQUE: Anteroposterior view of the pelvis and anteroposterior and frog-leg lateral views of the l eft hip were obtained. COMPARISON: None. FINDINGS: Cephalad displacement, varus angulation and external rotation at a transcervical fracture of the prox imal left femur. No other fractures identified. The femoral head remains normally centered in the lef t acetabulum but is rotated as with abduction. Bilateral hip joint spaces appear relatively preserved . Moderate lower lumbar spondylosis. Surgical clips at the left inguinal region which may be related to prior inguinal hernia repair. Suture line in the left lower quadrant of the abdomen. IMPRESSION: 1. Displaced, angulated and externally rotated transcervical fracture of the proximal left femur. Reviewed, dictated and finalized at location A. IMPRESSION: 1. Displaced, angulated and externally rotated transcervical fracture of the pr oximal left femur.
--- NOTE | ~2022-12-29 | XR_ITS ---
EXAMINATION: XR chest 1V DATE: 12/29/2022 12:42 INDICATION: Left hip fracture post fall. TECHNIQUE: frontal view of the chest was obtained. COMPARISON: Chest radiograph dated 03/14/2022 FINDINGS: Calcified nodule at the left lung base at the costophrenic angle consistent with old granulomatous di sease. No other airspace opacities, pulmonary edema, pleural effusion or pneumothorax. The cardiomedi astinal silhouette is normal. Likely implantable cardiac specialist projecting over the medial left mid chest. Surgical clips projecting over the lateral right chest wall/axilla. IMPRESSION: 1. No acute cardiopulmonary disease. Reviewed, dictated and finalized at location A.
--- NOTE | ~2022-12-29 | CT_ITS ---
EXAMINATION: CT cervical spine wo con DATE: 12/29/2022 12:26 INDICATION: Head injury. TECHNIQUE: Computed tomography (CT) of the cervical spine was performed without intravenous contrast. Automated exposure control and iterative reconstruction technique were employed. The dose-length pro duct was 605.33 mGy-cm. COMPARISON: None FINDINGS: There is mild scarring at the lung apices. There is an embolization coil mass in left supra sellar cistern. There is 14 degrees levoscoliosis of cervical spine. There is 3 mm anterolisthesis of C3 on C4. Vertebral body heights are normal. There is moderately decreased disc height at C3-C4 with interbody fusion. There is severely decreased disc height at C4-C5 and moderately decreased disc hei ght at C5-C6. The following disc levels are specifically discussed: C2-C3: There is severe right and mild left uncovertebral joint osteoarthritis. There is severe right and moderate left facet joint osteoarthritis. There is mild right neural foraminal stenosis. There is mild central canal stenosis. C3-C4: There is severe right and mild left uncovertebral joint osteoarthritis. There is ankylosis of right facet joint with severe hypertrophy. There is mild left uncovertebral joint osteoarthritis. The re is mild bilateral neural foraminal stenosis. There is mild central canal stenosis. C4-C5: There is severe bilateral uncovertebral joint osteoarthritis. There is mild right and moderate left facet joint osteoarthritis. There is mild bilateral neural foraminal stenosis. There is mild ce ntral canal stenosis. C5-C6: There is severe bilateral uncovertebral joint osteoarthritis. There is moderate right and mild left facet joint osteoarthritis. There is moderate right and mild left neural foraminal stenosis. Th ere is mild central canal stenosis. C6-C7: There is no uncovertebral joint osteoarthritis. There is mild bilateral facet joint osteoarthr itis. There is no neural foraminal stenosis. There is no central canal stenosis. C7-T1: There is no uncovertebral joint osteoarthritis. There is moderate right and mild left facet luis carlos int osteoarthritis. There is mild bilateral neural foraminal stenosis. There is no central canal sten osis. IMPRESSION: 1. No fracture. 2. Severe cervical spondylosis. 3. Cervical levoscoliosis. Reviewed, dictated and finalized at location E.
--- NOTE | ~2022-12-29 | CT_ITS ---
EXAMINATION: CT brain wo con DATE: 12/29/2022 12:26 INDICATION: Fall with head injury TECHNIQUE: Computed tomography (CT) of the head was performed without intravenous contrast. Sagittal and coronal reconstructions were performed. The mA was adjusted according to patient size. Iterative reconstruction technique was employed. The dose-length product was 605.33 mGy-cm. COMPARISON: head CT dated 07/03/2022 FINDINGS: Dense metallic streak artifact in the region of the left side of the suprasellar cistern likely relat ed to prior aneurysm coil embolization. This limits evaluation of the immediately adjacent brain pare nchyma. No acute intracranial hemorrhage, acute infarction or abnormal extra axial fluid collection. Ventricles are normal and symmetric. No mass/mass effect. Changes of bilateral intraocular lens repla cement. Mild mucosal thickening the bilateral ethmoid sinuses. The orbits and mastoid air cells are n ormal. IMPRESSION: 1. No acute intracranial process. 2. Streak artifact associated with likely aneurysm embolization coils at the left side of the suprase llar cistern. Reviewed, dictated and finalized at location A. IMPRESSION: 1. No acute intracranial process. 2. Streak artifact associated with likely aneurysm embolization coils at the le ft side of the suprasellar cistern.
--- NOTE | ~2022-12-29 | XR_ITS ---
EXAM: XR hip LT min 2V DATE: 12/31/2022 16:50 HISTORY: LT BIPOLAR HIP . COMPARISON: 12/29/2022. FINDINGS: Decreased mineralization. Surgical clips overlie the left pelvis/inguinal region. Uncompli cated appearing left hip arthroplasty, in good position. No unexpected radiopaque foreign body. Scatt ered subcutaneous gas. IMPRESSION: Expected postsurgical changes, with no radiographic evidence of procedure or hardware rel ated complication. Reviewed, dictated and finalized at location K. IMPRESSION: Expected postsurgical changes, with no radiographic evidence of pro cedure or hardware related complication.
--- NOTE | ~2022-12-29 | CT_ITS ---
EXAMINATION: CT abdomen pelvis w con DATE: 12/30/2022 11:47 INDICATION: Abnormal liver function tests. Abnormal ultrasound. TECHNIQUE: Computed tomography (CT) of the abdomen and pelvis was performed with 100 mL Omnipaque 350 intravenous contrast. Automated exposure control and iterative reconstruction technique were employe d. The dose-length product was 384.46 mGy-cm. COMPARISON: Ultrasound 12/30/2022 FINDINGS: The visualized portions of the lung bases demonstrate mild atelectasis. A calcified left germán ng nodule is consistent with old granulomatous disease. There is mild bronchiectasis in right middle lobe. No pleural effusion. The heart size is normal. No pericardial effusion. There are changes of ga stric bypass procedure. The liver and spleen are normal. There are changes of cholecystectomy. The pa ncreas, adrenal glands, and kidneys are normal. The bladder is decompressed by a Espinosa catheter. Ther e are no dilated loops of bowel. There are changes of appendectomy. There are no pathologically enlar ged lymph nodes. There is no free intraperitoneal fluid. There is severe lumbar spondylosis. There is a subcapital fracture of left femoral neck. The distal fracture fragment demonstrates shortening, an terior displacement, and posterior angulation. There is severe lumbar spondylosis. IMPRESSION: 1. No etiology for abnormal liver function tests. 2. The ultrasound finding correlates with changes of gastric bypass procedure. 3. Subcapital fracture of left femoral neck. Reviewed, dictated and finalized at location E.
[2022-12-29 10:54] VITALS: BP 153/79; PULSE 65; RESP 22; TEMP 36.6; O2SAT 100
--- NOTE | 2022-12-29 11:42 | ECG_ITS ---
Measurements Intervals [place] Rate: 64 P: 44 MT: 172 QRS: 10 QRSD: 99 T: 46 QT: 415 QTc: 429 Interpretive Statements SINUS RHYTHM INCOMPLETE RIGHT BUNDLE BRANCH BLOCK [90+ ms QRS DURATION, TERMINAL R IN V1/V2, 40+ ms S IN I/aVL/V4/V5/V6] ABNORMAL ECG COMPARED TO ECG 03/14/2022 16:56:35 INCOMPLETE RIGHT BUNDLE-BRANCH BLOCK NOW PRESENT Electronically Signed On 12-29-2022 12:14:24 CDT by Mahin Call M.D.
[2022-12-29] MEDS: ONDANSETRON INJ 4 MG/2 ML VIAL (11:49)
[2022-12-29] MEDS: fentaNYL CITRATE INJ (*CRX) 100 MCG/2 ML VIAL 50 MCG IV PUSH (11:53)
[2022-12-29 12:05] LABS: Basophils Absolute Auto 0.1 K/mm3 (0.0-0.1); Basophils Percent Auto 1.7 % (0.2-1.2); Eosinophils Absolute Auto 0.3 K/mm3 (0-0.3); Eosinophils Percent Auto 4.6 % (0-4.4); Hematocrit 34.6 % (37.0-47.0); Hemoglobin 10.8 g/dL (12.0-15.0); Immature Granulocyte Absolute 0.02 K/mm3 (0.00-0.031); Immature Granulocyte Percent A 0.3 % (0-0.5); Lymphocytes Absolute Auto 1.31 K/mm3 (0.9-3.2); Lymphocytes Percent Auto 22.2 % (18.3-44.2); Mean Corpuscular HGB Conc 31.2 g/dl (32-36); Mean Corpuscular Hemoglobin 31.1 pg (26-34); Mean Corpuscular Volume 99.7 fl (80-100); Mean Platelet Volume 10.5 fl (7.4-10.4); Monocytes Absolute Auto 0.5 K/mm3 (0.1-0.6); Neutrophils Absolute Auto 3.7 K/mm3 (1.3-6.7); Neutrophils Percent Auto 63.2 % (45.5-73.1); Platelet Count Result 255 k/mm3 (150-375); Red Blood Count 3.47 M/mm3 (4.2-5.4); Red Cell Distribution Width 12.4 % (11.5-14.5); White Blood Count 5.9 K/mm3 (4.5-10.0)
[2022-12-29 12:13] LABS: Appearance Urine Clear (Clear); Bacteria Urine None Seen /hpf; Bilirubin Urine Negative (Negative); Blood Urine Negative (Negative); Color Urine Dark Yellow (Yellow); Glucose Urine UA Negative (Negative); Ketones Urine Trace mg/dL (Negative); Leukocyte Esterase Ur Trace LEU/UL (Negative); Nitrate Urine Negative (Negative); Protein Urine Negative (Negative); RBC Urine 0-2 /hpf (0-2); Specific Grav Ur 1.024 (1.001-1.035); Squamous Epithelial Cell Urine None seen /hpf (Few); WBC Urine 0-5 /hpf; pH Urine 6.5 (5.0-9.0)
[2022-12-29 12:18] LABS: Add Urine Microscopic? YES
[2022-12-29 12:19] LABS: INR 0.9; Partial Thromboplastin Time 24.6 SECONDS (22.3-36.8); Prothrombin Time 12.9 Seconds (11.1-14.7)
[2022-12-29 13:03] VITALS: BP 138/52; PULSE 67; RESP 15; O2SAT 99
[2022-12-29 13:23] LABS: Alanine Aminotransferase 154 U/L (6-35); Albumin Level 3.9 g/dL (3.5-5.1); Alkaline Phosphatase 93 U/L (38-126); Anion Gap 4 mmol/L (8-16); Aspartate Amino Transferase 397 U/L (14-36); Bilirubin,Total 0.7 mg/dL (0.2-1.3); Blood Urea Nitrogen 21 mg/dL (7-17); Calcium 8.8 mg/dL (8.4-10.2); Carbon Dioxide 28 mmol/L (22-30); Chloride 104 mmol/L (98-107); Estimated CRCL calculation 42 ml/min; Estimated Glomerular Filt Rate 60; Glucose 114 mg/dL (65-110); Potassium 4.2 mmol/L (3.4-5.0); Sodium 136 mmol/L (137-145)
[2022-12-29 13:31] LABS: Need Manual Microscopic Reviewed
[2022-12-29 14:08] VITALS: BP 101/66; PULSE 88; RESP 14; O2SAT 92
--- NOTE | 2022-12-29 15:00 | PM.IMHP ---
H&P: HPI History of Present Illness Date/Time: 12/29/22 14:45 Chief Complaint: Left hip pain after fall. Narrative: This is a very pleasant 77-year-old female with history of stroke, balance issues, and seizures who presented to the emergency department via EMS from the [facility] for evaluation of left hip pain after a fall. The patient provides the following history. She has ongoing issues with her balance for which she has participating in physical therapy. She tries to stay active and rides a recumbent bike daily and does water aerobics multiple times a week. Today after water aerobics she was in the locker room putting on her shoes. When she went to stand up she felt extremely dizzy (not necessarily unusual for her) and she reports losing her balance, striking her head on the wall and falling down onto her left hip. She had immediate pain in the left hip and she was unable to get herself up. Imaging in the ED showed a transcervical fracture and she is being admitted in this setting. There was no loss of consciousness in the fall. She denies any other injuries. She has not had exertional chest pain or shortness of breath. No known history of cardiac disease. She does have a loop recorder in place although she denies that it was placed due to syncope. Review of Systems Review of Systems: Twelve systems were reviewed. No fever, chills, or sweats. No recent cold or flu symptoms. Appetite has been good. No nausea, vomiting, or diarrhea. She denies abdominal pain and fullness. No history or concerns for exposure to hepatitis. No dysuria. No history of venous thromboembolism. Except as documented, all other systems were reviewed and are negative. [facility] Past Medical History Medical History Cerebral arterial aneurysm status post coil embolization History of stress test (~05/2021) History of torn meniscus of knee (~1999) Primary osteoarthritis of knees, bilateral Seizure disorder Surgical History Surgical History History of appendectomy (2018) History of cholecystectomy (01/2016) History of cornea transplant History of hysterectomy (09/1989) History of right mastectomy (08/1986) History of tonsillectomy Status post coil embolization of cerebral aneurysm (08/2012) Family History Family History Mother Asthma History of blood clots Grandparent Diabetes mellitus Social History Social History (Updated 12/29/22 @ 21:08 by Marielle Marcus PA-C) Social History: Surrogate medical decision maker: Thelma Elliott, daughter. Code status: Full code. Smoking status: Never smoker Second hand tobacco smoke exposure: Yes Alcohol intake: never Substance use: never Substance use type: does not use Lack of Transportation: No Lack of Food: Never True Current Housing: I Have Housing Concerned About Future Housing: No Difficulty Paying Gas/Electric Bills: No Difficulty Paying for Meds: No Currently Unemployed: No Education: Associate Degree Difficulty w/ Childcare or Family Care: No Spiritual care concerns: No Meds Home Medications and Allergies Home Medications Medication Instructions Recorded Confirmed Type albuterol sulfate 90 mcg/actuation 2 inh inhalation PRN PRN Shortness 09/01/22 12/29/22 History aerosol inhaler Of Breath Or Wheezing lamotrigine 100 mg tablet 100 mg PO BID 09/01/22 12/29/22 History levetiracetam 1,000 mg tablet 2,000 mg PO BID 09/01/22 12/29/22 History diclofenac potassium 50 mg tablet 50 mg PO TID 12/29/22 12/29/22 History diphenhydramine HCl 25 mg capsule 25 mg PO HS PRN Itching 12/29/22 12/29/22 History (Benadryl) docusate sodium 50 mg capsule 50 mg PO TID 12/29/22 12/29/22 History ferrous sulfate 325 mg (65 mg 325 mg PO EVERY OTHER DAY 12/29/22 12/29/22 History iron) tablet (Iron (ferrous sulfat
[2022-12-29 15:03] VITALS: BP 125/52; PULSE 85; RESP 19; O2SAT 99
[2022-12-29 15:45] VITALS: BP 131/54; PULSE 68; RESP 16; TEMP 36.2; O2SAT 98
[2022-12-29] MEDS: MORPHINE SULFATE (*CRX) 4 MG/ML INJ 2 MG IV PUSH ×2 (15:45→22:15)
[2022-12-29 15:56] VITALS: BMI 27.9
[2022-12-29 21:43] LABS: Acetaminophen < 10 ug/mL (10-30)
[2022-12-29 21:53] VITALS: BP 127/58; PULSE 68; RESP 20; TEMP 36.7; O2SAT 98
[2022-12-29] MEDS: lamoTRIgine 100 MG TABLET PO (22:11)
[2022-12-29 22:26] LABS: Creatine Kinase 141 U/L (30-135)
[2022-12-30] MEDS: MORPHINE SULFATE (*CRX) 4 MG/ML INJ 2 MG IV PUSH ×2 (02:03→22:13)
[2022-12-30 06:00] VITALS: BP 124/53; PULSE 68; RESP 18; TEMP 36.4; O2SAT 98
[2022-12-30] MEDS: FLUTICASONE/SALMETEROL 115-21 MCG INHALER 1 PUFF 2 PUFF INHALATION ×2 (07:59→20:45)
--- NOTE | 2022-12-30 08:06 | PM.CNOR ---
Assessment and Plan Assessment and plan (1) Transcervical fracture of left femur: Qualifiers: Encounter type: initial encounter Fracture type: closed Qualified Code(s): S72.032A - Displaced midcervical fracture of left femur, initial encounter for closed fracture Code(s): S72.032A - Displaced midcervical fracture of left femur, initial encounter for closed fracture Status: Acute Plan 77-year-old female with a displaced left femoral neck fracture. Optimal treatment for this is going to be bipolar hip replacement. I did discuss this with her. Risks and potential complications were discussed in detail and questions answered. In addition to the typical risks associated with this type of a procedure I think that given her recent history of TIA that the risk for a neurologic event is probably slightly increased. With her falls I think that she should consider using a walker e learning manager. We did review this. She is already anemic and that will probably be worsened with this injury and surgery. Pending medical clearance will plan on proceeding with left bipolar hip replacement today. History of Present Illness HPI Consult date: 12/30/22 Chief complaint: Left Femur Fracture Narrative: This document created with [id number] technology and is subject to suture gauger irregularities. 77-year-old female who was changing after exercising at the [facility] yesterday. She stood up became lightheaded which she said happens with some frequency. She fell over and suffered a left femoral neck fracture. She was admitted for further evaluation and management. History significant for anemia, passed embolization a brain aneurysm and earlier this year history of what sounds like TIA. Currently wears a loop recorder. Medical history in the chart reviewed. History of fibromyalgia for which she said that she has been on Cataflam for 35 years. Review of Systems Constitutional: Constitutional: Reports no additional constitutional complaints, Denies excessive sweating and Denies fatigue Eyes: Eyes: Reports no additional eye complaints ENT: Reports system reviewed and no additional complaints, except as documented Cardiovascular: Cardiovascular: Denies chest pain at rest and Denies dyspnea Respiratory: Respiratory: Reports no additional respiratory complaints and Denies dyspnea Gastrointestinal: Gastrointestinal: Reports no additional gastrointestinal complaints Musculoskeletal: Musculoskeletal: Reports as per HPI Integumentary/Breasts: Skin/Breast: Reports system reviewed and no additional complaints, except as docu Neurologic: Reports as per HPI Endocrine: Endocrine: Denies excessive sweating and Denies fatigue Hematologic/Lymphatic: Hematologic/Lymphatic: Denies easy bleeding and Denies easy bruising [facility] Past Medical History Medical History (Updated 12/30/22 @ 08:12 by William Rosa MD) Breast cancer and mastectomy with immediate reconstruction. That was several decades ago. She said she is considered cancer free. Cerebral arterial aneurysm status post coil embolization Fibromyalgia History of stress test (~05/2021) History of torn meniscus of knee (~1999) Primary osteoarthritis of knees, bilateral Seizure disorder Transcervical fracture of left femur Surgical History Surgical History (Updated 12/30/22 @ 08:10 by William Rosa MD) History of appendectomy (2018) History of cholecystectomy (01/2016) History of cornea transplant History of hysterectomy (09/1989) History of right mastectomy (08/1986) for breast cancer History of tonsillectomy Status post coil embolization of cerebral aneurysm (08/2012) Family History Family History Mother Asthma History of blood clots Grandparent Diabetes mellitus Social History Social History Social History: Surrogate medical decision maker: Thelma
[2022-12-30 08:22] LABS: Basophils Absolute Auto 0.1 K/mm3 (0.0-0.1); Basophils Percent Auto 1.2 % (0.2-1.2); Eosinophils Absolute Auto 0.4 K/mm3 (0-0.3); Eosinophils Percent Auto 6.7 % (0-4.4); Hemoglobin 10.7 g/dL (12.0-15.0); Immature Granulocyte Absolute 0.01 K/mm3 (0.00-0.031); Immature Granulocyte Percent A 0.2 % (0-0.5); Lymphocytes Absolute Auto 0.88 K/mm3 (0.9-3.2); Lymphocytes Percent Auto 14.7 % (18.3-44.2); Mean Corpuscular HGB Conc 31.5 g/dl (32-36); Mean Corpuscular Hemoglobin 31.1 pg (26-34); Mean Corpuscular Volume 98.8 fl (80-100); Mean Platelet Volume 9.8 fl (7.4-10.4); Monocytes Absolute Auto 0.6 K/mm3 (0.1-0.6); Monocytes Percent Auto 9.7 % (2.6-8.5); Neutrophils Absolute Auto 4.1 K/mm3 (1.3-6.7); Neutrophils Percent Auto 67.5 % (45.5-73.1); Platelet Count Result 247 k/mm3 (150-375); Red Blood Count 3.44 M/mm3 (4.2-5.4); Red Cell Distribution Width 12.4 % (11.5-14.5)
[2022-12-30 08:36] LABS: Alkaline Phosphatase 120 U/L (38-126); Anion Gap 3 mmol/L (8-16); Bilirubin,Total 0.8 mg/dL (0.2-1.3); Blood Urea Nitrogen 11 mg/dL (7-17); Carbon Dioxide 28 mmol/L (22-30); Chloride 104 mmol/L (98-107); Estimated CRCL calculation 53 ml/min; Estimated Glomerular Filt Rate > 60; Glucose 99 mg/dL (65-110); Potassium 4.3 mmol/L (3.4-5.0); Sodium 135 mmol/L (137-145)
[2022-12-30 08:51] LABS: Alanine Aminotransferase 803 U/L (6-35); Aspartate Amino Transferase 879 U/L (14-36)
[2022-12-30] MEDS: levETIRAcetam 500 MG TABLET 2000 MG PO ×2 (09:31→22:00)
[2022-12-30] MEDS: lamoTRIgine 50 MG TABLET 150 MG PO (09:32)
[2022-12-30] MEDS: FLUOROMETHOLONE 0.1% OP SUSP 5 ML BTL 1 DROP RIGHT EYE (09:32)
[2022-12-30] MEDS: SODIUM CHLORIDE 0.9% IV 1,000 ML 100 ML IV CONT ×2 (12:13→22:13)
[2022-12-30] MEDS: lamoTRIgine 100 MG TABLET PO ×2 (13:57→22:00)
[2022-12-30 14:00] VITALS: PULSE 85; RESP 18; TEMP 36.2; O2SAT 92
--- NOTE | 2022-12-30 14:15 | ED.FALL ---
HPI - Fall General Chief Complaint: Fall Stated Complaint: Fall, hip injury Time Seen by Provider: 12/29/22 11:59 History of Present Illness HPI Narrative: This is a 77F brought in by EMS after a fall with left hip pain. She states she was at the [facility], standing after putting on her shoes, when she slipped, falling and striking her left hip and head on a bench then the ground. She felt sudden severe pain of the left hip. She denies loss of consciousness and has no other complaints at this time. Related Data Home Medications Medication Instructions Recorded Confirmed albuterol sulfate 90 mcg/actuation 2 inh inhalation PRN PRN Shortness 09/01/22 12/29/22 aerosol inhaler Of Breath Or Wheezing lamotrigine 100 mg tablet 100 mg PO BID 09/01/22 12/29/22 levetiracetam 1,000 mg tablet 2,000 mg PO BID 09/01/22 12/29/22 diclofenac potassium 50 mg tablet 50 mg PO TID 12/29/22 12/29/22 diphenhydramine HCl 25 mg capsule 25 mg PO HS PRN Itching 12/29/22 12/29/22 (Benadryl) docusate sodium 50 mg capsule 50 mg PO TID 12/29/22 12/29/22 ferrous sulfate 325 mg (65 mg 325 mg PO EVERY OTHER DAY 12/29/22 12/29/22 iron) tablet (Iron (ferrous sulfate)) fluorometholone 0.1 % eye 1 drp RIGHT EYE DAILY 12/29/22 12/29/22 drops,suspension fluticasone 250 mcg-salmeterol 50 1 ea inhalation BID 12/29/22 12/29/22 mcg/dose blistr powdr for inhalation (Advair Diskus) lamotrigine 150 mg tablet 150 mg PO DAILY 12/29/22 12/29/22 melatonin 10 mg tablet 10 mg PO HS 12/29/22 12/29/22 polyethylene glycol 3350 17 gram 17 g PO DAILY PRN Constipation 12/29/22 12/29/22 oral powder packet (Miralax) sennosides 8.6 mg tablet (senna) 8.6 mg PO DAILY 12/29/22 12/29/22 Allergies Allergy/AdvReac Type Severity Reaction Status Date / Time No Known Allergies Allergy Verified 12/29/22 11:02 Review of Systems Review of Systems: CONSTITUTIONAL: Denies fever, chills, or sweats. CARDIOVASCULAR: Denies chest pain, palpitations, or edema. RESPIRATORY: Denies cough or dyspnea. GASTROINTESTINAL: Denies abdominal pain, nausea, vomiting, or diarrhea. GENITOURINARY: Denies dysuria or hematuria. SKIN: Denies rash or itching. MUSCULOSKELETAL: Left hip pain Denies back pain, or myalgia. NEUROLOGIC: Denies headache, numbness, dizziness, or weakness. PSYCHIATRIC: Denies anxiety or depression. [facility] Past Medical History Medical History Breast cancer and mastectomy with immediate reconstruction. That was several decades ago. She said she is considered cancer free. Cerebral arterial aneurysm status post coil embolization Fibromyalgia History of stress test (~05/2021) History of torn meniscus of knee (~1999) Primary osteoarthritis of knees, bilateral Seizure disorder Transcervical fracture of left femur Surgical History Surgical History History of appendectomy (2018) History of cholecystectomy (01/2016) History of cornea transplant History of hysterectomy (09/1989) History of right mastectomy (08/1986) for breast cancer History of tonsillectomy Status post coil embolization of cerebral aneurysm (08/2012) Family History Family History Mother Asthma History of blood clots Grandparent Diabetes mellitus Social History Social History Social History: Surrogate medical decision maker: Thelma Elliott, daughter. Code status: Full code. Smoking status: Never smoker Second hand tobacco smoke exposure: Yes Alcohol intake: never Substance use: never Substance use type: does not use Lack of Transportation: No Lack of Food: Never True Current Housing: I Have Housing Concerned About Future Housing: No Difficulty Paying Gas/Electric Bills: No Difficulty Paying for Meds: No Currently Unemployed: No Education: Assoc
--- NOTE | 2022-12-30 14:55 | PM.IMPN ---
Progress Note: A&P Assessment and Plan (1) Transcervical fracture of left femur: Qualifiers: Encounter type: initial encounter Fracture type: closed Qualified Code(s): S72.032A - Displaced midcervical fracture of left femur, initial encounter for closed fracture Code(s): S72.032A - Displaced midcervical fracture of left femur, initial encounter for closed fracture Status: Acute Assessment and Plan: displaced, angulated, and externally rotated transcervical fracture of the proximal left femur Analgesics are available as needed Dr. Rosa has been consulted and their plans for surgical repair tomorrow pending liver enzymes and anesthesiology clearance (2) Elevated LFTs: Code(s): R79.89 - Other specified abnormal findings of blood chemistry Status: Acute Assessment and Plan: hepatic panel ordered, liver enzymes elevated to 879/803 today respectively which is increased dramatically even overnight US showed a 6.4 cm mass in the abdomen of uncertain etiology. The differential diagnosis includes abscess, bowel, and neoplasm CT scan showed no evidence of etiology for elevation could be related to chronic use of NSAIDs for pain will continue to monitor (3) Seizure disorder: Code(s): G40.909 - Epilepsy, unspecified, not intractable, without status epilepticus Status: Acute Assessment and Plan: continue at home medications Plan . Subjective Date/time seen: 12/30/22 14:55 Interval history: Patient is 77-year-old female with history of stroke, balance issues, and seizures who was admitted for evaluation of left hip pain after a fall at the [facility]. She has ongoing issues with her balance for which she has participating in physical therapy. Imaging in the ED showed a transcervical fracture and she is being followed by ortho for surgical repair. Liver enzymes are highly elevated, spoke with ortho surgeon and will hold off on surgery until to tomorrow pending clearance by anesthesiology. CT scan was negative for etiology for elevated liver enzymes. Could be from chronic use of NSAID for fibromyalgia pain. Discussed possibility of going to [place] for surgery with her history and risk of stroke, but patient is hesitant to transfer. Will await further liver enzyme results. She has not had exertional chest pain or shortness of breath. No known history of cardiac disease. She does have a loop recorder in place although she denies that it was placed due to syncope. She is being made comfortable for her pain tonight and will let her eat until midnight when she will be placed NPO again in hopes for surgery tomorrow. Review of Systems Review of Systems: Twelve systems were reviewed. No fever, chills, or sweats. No recent cold or flu symptoms. Appetite has been good. No nausea, vomiting, or diarrhea. She denies abdominal pain and fullness. No history or concerns for exposure to hepatitis. No dysuria. No history of venous thromboembolism. Except as documented, all other systems were reviewed and are negative. Exam Narrative: General: Well-developed, nontoxic-appearing female supine in bed in no acute distress. HEENT: PERRL, EOMI. Neck: Supple. Respiratory: Lungs are clear to auscultation bilaterally. Cardiovascular: RRR Gastrointestinal: Abdomen is soft, nontender, and nondistended with positive bowel sounds. Skin: Warm and dry. No rash or lesions on limited exam. Extremities: No cyanosis, clubbing, or edema. Radial and pedal pulses intact. Musculoskeletal: Left leg is shortened and externally rotated. She has tenderness to palpation over the left hip. Mild swelling noted. Neurological: Alert and oriented x3. No gross focal deficits to casual conversation. Psychiatric: Pleasant and cooperative with normal mood and affect. Judgment and insight intact. Objective Data Vital Signs Vital Signs: Vital Signs - 24 hr 12/29/22 15:03 12/29/22 15:45 12/29/22 21:53 Achille
[2022-12-30 20:15] VITALS: PULSE 82; RESP 12; O2SAT 96
[2022-12-30 20:46] VITALS: PULSE 81; O2SAT 92
[2022-12-30 22:00] VITALS: BP 132/65; PULSE 82; RESP 12; TEMP 36.8; O2SAT 96
[2022-12-31] VITALS (14 sets, daily range): BP systolic 119–142; BP diastolic 45–68; PULSE 70–92; RESP 12–20; TEMP 36.3–37.1; O2SAT 93–100
[2022-12-31] MEDS: DOCUSATE SODIUM LIQ 100 MG/10 ML UDC 50 MG PO (00:13)
[2022-12-31] MEDS: MORPHINE SULFATE (*CRX) 4 MG/ML INJ 2 MG IV PUSH ×2 (02:24→11:51)
[2022-12-31 07:22] LABS: Hematocrit 32.1 % (37.0-47.0); Mean Corpuscular HGB Conc 31.2 g/dl (32-36); Mean Corpuscular Hemoglobin 31.3 pg (26-34); Mean Corpuscular Volume 100.3 fl (80-100); Mean Platelet Volume 9.9 fl (7.4-10.4); Platelet Count Result 206 k/mm3 (150-375); Red Cell Distribution Width 12.6 % (11.5-14.5); White Blood Count 6.7 K/mm3 (4.5-10.0)
[2022-12-31 07:23] LABS: Anion Gap 4 mmol/L (8-16); Blood Urea Nitrogen 9 mg/dL (7-17); Calcium 8.5 mg/dL (8.4-10.2); Carbon Dioxide 25 mmol/L (22-30); Chloride 106 mmol/L (98-107); Estimated CRCL calculation 53 ml/min; Estimated Glomerular Filt Rate > 60; Glucose 98 mg/dL (65-110); Lipase 44 U/L (23-300); Potassium 4.1 mmol/L (3.4-5.0); Sodium 135 mmol/L (137-145)
[2022-12-31] MEDS: SODIUM CHLORIDE 0.9% IV 1,000 ML 100 ML IV CONT (09:26)
[2022-12-31] MEDS: levETIRAcetam 500 MG TABLET 2000 MG PO ×2 (09:35→20:32)
[2022-12-31] MEDS: lamoTRIgine 50 MG TABLET 150 MG PO (09:35)
[2022-12-31] MEDS: FLUTICASONE/SALMETEROL 115-21 MCG INHALER 1 PUFF 2 PUFF INHALATION ×2 (09:46→20:35)
--- NOTE | 2022-12-31 10:02 | PC.NURSE ---
report called to Rebecca THORNTON in OR, patient will be leaving around 1230, has been NPO other than seizure meds.
--- NOTE | 2022-12-31 13:43 | WPDANESEPPF ---
Anes - Initial Pre Proc Eval Procedure: Operation Date: 12/31/22 14:00 Proposed Procedures p Left Bipolar - William Rosa MD Date/Time: 12/31/22 13:43 Surgeon: Dorinda Fuller MD Pre Op Diagnosis: Left Femur Fracture Patient Data Age: 77 Gender: F Height: 1.6 m Weight: 71.5 kg Last Vital Signs Temp 36.7 C 12/31/22 12:53 Pulse 80 12/31/22 12:53 Resp 18 12/31/22 12:53 BP 142/50 H 12/31/22 12:53 Pulse Ox 97 12/31/22 12:53 O2 Del Method Room Air 12/31/22 12:53 Allergies Allergy/AdvReac Type Severity Reaction Status Date / Time No Known Allergies Allergy Verified 12/31/22 12:58 Home Medications Medication Instructions Recorded Confirmed Type albuterol sulfate 90 mcg/actuation 2 inh inhalation PRN PRN Shortness 09/01/22 12/29/22 History aerosol inhaler Of Breath Or Wheezing lamotrigine 100 mg tablet 100 mg PO BID 09/01/22 12/29/22 History levetiracetam 1,000 mg tablet 2,000 mg PO BID 09/01/22 12/29/22 History diclofenac potassium 50 mg tablet 50 mg PO TID 12/29/22 12/29/22 History diphenhydramine HCl 25 mg capsule 25 mg PO HS PRN Itching 12/29/22 12/29/22 History (Benadryl) docusate sodium 50 mg capsule 50 mg PO TID 12/29/22 12/29/22 History ferrous sulfate 325 mg (65 mg 325 mg PO EVERY OTHER DAY 12/29/22 12/29/22 History iron) tablet (Iron (ferrous sulfate)) fluorometholone 0.1 % eye 1 drp RIGHT EYE DAILY 12/29/22 12/29/22 History drops,suspension fluticasone 250 mcg-salmeterol 50 1 ea inhalation BID 12/29/22 12/29/22 History mcg/dose blistr powdr for inhalation (Advair Diskus) lamotrigine 150 mg tablet 150 mg PO DAILY 12/29/22 12/29/22 History melatonin 10 mg tablet 10 mg PO HS 12/29/22 12/29/22 History polyethylene glycol 3350 17 gram 17 g PO DAILY PRN Constipation 12/29/22 12/29/22 History oral powder packet (Miralax) sennosides 8.6 mg tablet (senna) 8.6 mg PO DAILY 12/29/22 12/29/22 History Laboratory Tests 12/31/22 06:56 WBC 6.7 K/mm3 (4.5-10.0) RBC 3.20 L M/mm3 (4.2-5.4) Hgb 10.0 L g/dL (12.0-15.0) Hct 32.1 L % (37.0-47.0) MCV 100.3 H fl (80-100) MCH 31.3 pg (26-34) MCHC 31.2 L g/dl (32-36) RDW 12.6 % (11.5-14.5) Plt Count 206 k/mm3 (150-375) MPV 9.9 fl (7.4-10.4) Sodium 135 L mmol/L (137-145) Potassium 4.1 mmol/L (3.4-5.0) Chloride 106 mmol/L (98-107) Carbon Dioxide 25 mmol/L (22-30) Anion Gap 4 L mmol/L (8-16) BUN 9 mg/dL (7-17) Creatinine 0.70 mg/dL (0.7-1.0) Estim Creat Clear Calc 53 ml/min Estimated GFR > 60 (59 - ) Glucose 98 mg/dL (65-110) Calcium 8.5 mg/dL (8.4-10.2) Lipase 44 U/L (23-300) Patient hx anesthesia problems: none Family hx anesthesia problems: none Results Review: All pre-operative results and documents have been reviewed as part of the pre-operative evaluation. COUNTS INCLUDE 234 BEDS AT THE [facility] Past Medical History Medical History Breast cancer and mastectomy with immediate reconstruction. That was several decades ago. She said she is considered cancer free. Cerebral arterial aneurysm status post coil embolization Fibromyalgia History of stress test (~05/2021) History of torn meniscus of knee (~1999) Primary osteoarthritis of knees, bilateral Seizure disorder Transcervical fracture of left femur Surgical History Surgical History History of appendectomy (2018) History of cholecystectomy (01/2016) History of cornea transplant History of hysterectomy (09/1989) History of right mastectomy (08/1986) for breast cancer History of tonsillectomy Status post coil embolization of cerebral aneurysm (08/2012) Family History Family History Mother Asthma History of blood clots Grandparent Diabetes mellitus Social Histor
--- NOTE | 2022-12-31 13:46 | WPDHPUPDATE1 ---
History and Physical Update Update Date/Time: 12/31/22 13:46 History and Physical has been reviewed, including an updated exam of the patient. There are NO changes in the patient's condition. Risks, benefits, and alternatives have been discussed and questions answered. Patient agrees to proceed with procedure.
[2022-12-31] MEDS: ceFAZolin 2 GM/D5W 50 ML 2 GM/50 ML BAG IVPB (14:03)
--- NOTE | 2022-12-31 14:07 | PM.IMPN ---
Progress Note: A&P Assessment and Plan (1) Closed fracture of femur, neck: Qualifiers: Encounter type: initial encounter Laterality: left Qualified Code(s): S72.002A - Fracture of unspecified part of neck of left femur, initial encounter for closed fracture Code(s): S72.009A - Fracture of unspecified part of neck of unspecified femur, initial encounter for closed fracture Status: Acute Assessment and Plan: See below (2) Acute pain of left hip: Code(s): M25.552 - Pain in left hip Status: Acute (3) Seizure disorder: Code(s): G40.909 - Epilepsy, unspecified, not intractable, without status epilepticus Status: Acute Assessment and Plan: continue at home medications seizure are controlled medically stable for surgery (4) Elevated liver enzymes: Code(s): R74.8 - Abnormal levels of other serum enzymes Status: Acute (5) Transcervical fracture of left femur: Qualifiers: Encounter type: initial encounter Fracture type: closed Qualified Code(s): S72.032A - Displaced midcervical fracture of left femur, initial encounter for closed fracture Code(s): S72.032A - Displaced midcervical fracture of left femur, initial encounter for closed fracture Status: Acute Assessment and Plan: displaced, angulated, and externally rotated transcervical fracture of the proximal left femur Analgesics are available as needed Dr. Rosa has been consulted and their plans for surgical repair tomorrow pending liver enzymes and anesthesiology clearance (6) Elevated LFTs: Code(s): R79.89 - Other specified abnormal findings of blood chemistry Status: Acute Assessment and Plan: hepatic panel ordered, liver enzymes elevated to 879/803 today respectively which is increased dramatically even overnight US showed a 6.4 cm mass in the abdomen of uncertain etiology. The differential diagnosis includes abscess, bowel, and neoplasm CT scan showed no evidence of etiology for elevation could be related to chronic use of NSAIDs for pain will continue to monitor Plan . Subjective Date/time seen: 12/31/22 14:07 Interval history: 77-year-old female with history of stroke, balance issues, and seizures who was admitted for evaluation of left hip pain after a fall at the [facility]. She has ongoing issues with her balance for which she has participating in physical therapy. Imaging in the ED showed a transcervical fracture and she is being followed by ortho for surgical repair. Liver enzymes are highly elevated, spoke with ortho surgeon and will hold off on surgery until to tomorrow pending clearance by anesthesiology. CT scan was negative for etiology for elevated liver enzymes. Could be from chronic use of NSAID for fibromyalgia pain. Discussed possibility of going to [place] for surgery with her history and risk of stroke, but patient is hesitant to transfer. Will await further liver enzyme results. She has not had exertional chest pain or shortness of breath. No known history of cardiac disease. She does have a loop recorder in place although she denies that it was placed due to syncope. She is being made comfortable for her pain tonight and will let her eat until midnight when she will be placed NPO again in hopes for surgery tomorrow. Pt has history of seizures but has been seizure free and is taking seizure medications regularly Review of Systems Review of Systems: L hip pain Objective Data Vital Signs Vital Signs: Vital Signs - 24 hr 12/30/22 20:46 12/30/22 22:00 12/30/22 20:15 Temperature 36.8 C Pulse Rate 81 82 82 Respiratory Rate 12 12 Blood Pressure 132/65 Pulse Oximetry 92 96 96 Oxygen Delivery Room Air Room Air 12/31/22 06:00 12/31/22 08:00 12/31/22 09:47 Temperature 36.3 C L Pulse Rate 75 Respiratory Rate 16 Blood Pressure 119/68 Pulse Oximetry 95 94 Oxygen Delivery Room Air Room Air 12/31/22
--- NOTE | 2022-12-31 14:55 | SUR.OPER ---
Patient arrived with indwelling catheter, 500ml clear yellow urine emptied
--- NOTE | 2022-12-31 16:08 | P.OP_ITS ---
Procedure Note - Detailed Date of Procedure 12/31/22 Pre-op Diagnosis Displaced left subcapital femoral neck fracture Post-op Diagnosis Same Procedure Performed Left bipolar hip replacement Surgeon William Rosa MD Application Design Engineer Eddie Anesthesia General Description of Procedure The patient was identified and proper site identified, then taken back to the operating room and transferred to the OR table. After general anesthetic induction and intubation, the patient was positioned in the right lateral decubitus position in the usual manner for a left hip procedure, and secured with padded hip positioner making sure the torso and extremities were properly padded. The left lower extremity was prepped and draped in the usual sterile fashion. A curvilinear incision was made over the greater trochanter and sharp dissection carried down through the subcutaneous tissue to the gluteus fascia and IT band which were divided in line with the incision. The anterior 1/2 of the abductors were sharply dissected off the greater trochanter developing the interval between the abductors and the capsule. The capsule was divided in an inverted-T fashion exposing the fracture site. A neck cut was made about one fingerbreadth above the level of the lesser trochanter. Head fragment was remov ed and the acetabulum cleared of debris. The acetabulum was sized to 46 mm. The proximal femur was prepared for the size 11 Press-Fit. Trial reduction was undertaken and the hip was noted to be stable through range of motion. The trial components removed. The real size 11 fracture stem was seated. Through trialing it was noted that a 28 standard head with 46 cup configuration gave denominational of leg lengths with excellent stability. The neck of the femoral component was cleaned and dried and the real components in those sizes were attached to the femoral stem. After final thorough lavage of the joint, the hip was again reduced. The capsule and caryn-incisional tissues were infiltrated with 60 milliliters of arthroplasty solution. The capsule was repaired with #2 Ethibond suture. The abductors were repaired to the greater trochanter with #5 Ethibond suture passed through a bony bridge. The deep fascia was reapproximated with 0 looped PDS suture. Deeper layers of the subcu reapproximated with []. 2-0 strata fix and tissue adhesive were used for the skin, and a sterile dressing was applied. Procedure was well tolerated and there were no known intraoperative complications. Estimated Blood Loss 200 Drains No Packing No Pathology None sent Complications No immediate complications Condition Stable Disposition PACU [facility] Billing Surgery - Charge Forward: Surgery Billing ([id number])
[2022-12-31] MEDS: LACTATED RINGERS 1,000 ML 30 ML IV CONT (16:23)
[2022-12-31] MEDS: HYDROcodone/acetaminophen (*CRX) 5-325 MG TABLET 1 TAB PO ×2 (18:28→22:52)
[2022-12-31] MEDS: SODIUM CHLORIDE 0.9% IV 1,000 ML 125 ML IV CONT (18:32)
[2022-12-31] MEDS: ONDANSETRON INJ 4 MG/2 ML VIAL IV PUSH (18:36)
[2022-12-31] MEDS: diphenhydrAMINE HCl CAP 25 MG CAPSULE PO (20:32)
[2022-12-31] MEDS: lamoTRIgine 100 MG TABLET PO (20:32)
[2023-01-01] VITALS (9 sets, daily range): BP systolic 92–133; BP diastolic 44–54; PULSE 89–107; RESP 12–22; TEMP 36.4–37.9; O2SAT 93–98
[2023-01-01] MEDS: SODIUM CHLORIDE 0.9% IV 1,000 ML 125 ML IV CONT (05:49)
[2023-01-01] MEDS: HYDROcodone/acetaminophen (*CRX) 5-325 MG TABLET 1 TAB PO (06:27)
[2023-01-01 06:59] LABS: Basophils Absolute Auto 0.1 K/mm3 (0.0-0.1); Basophils Percent Auto 0.6 % (0.2-1.2); Eosinophils Percent Auto 0.3 % (0-4.4); Hematocrit 31.4 % (37.0-47.0); Hemoglobin 9.6 g/dL (12.0-15.0); Immature Granulocyte Absolute 0.05 K/mm3 (0.00-0.031); Immature Granulocyte Percent A 0.4 % (0-0.5); Lymphocytes Percent Auto 10.1 % (18.3-44.2); Mean Corpuscular HGB Conc 30.6 g/dl (32-36); Mean Corpuscular Hemoglobin 31.1 pg (26-34); Mean Corpuscular Volume 101.6 fl (80-100); Mean Platelet Volume 10.1 fl (7.4-10.4); Monocytes Absolute Auto 1.7 K/mm3 (0.1-0.6); Monocytes Percent Auto 14.4 % (2.6-8.5); Neutrophils Absolute Auto 8.8 K/mm3 (1.3-6.7); Neutrophils Percent Auto 74.2 % (45.5-73.1); Platelet Count Result 187 k/mm3 (150-375); Red Blood Count 3.09 M/mm3 (4.2-5.4); Red Cell Distribution Width 12.3 % (11.5-14.5); White Blood Count 11.9 K/mm3 (4.5-10.0)
[2023-01-01 07:04] LABS: Anion Gap 5 mmol/L (8-16); Blood Urea Nitrogen 11 mg/dL (7-17); Calcium 8.1 mg/dL (8.4-10.2); Carbon Dioxide 24 mmol/L (22-30); Chloride 104 mmol/L (98-107); Estimated CRCL calculation 53 ml/min; Estimated Glomerular Filt Rate > 60; Glucose 113 mg/dL (65-110); Sodium 133 mmol/L (137-145)
[2023-01-01] MEDS: FLUTICASONE/SALMETEROL 115-21 MCG INHALER 1 PUFF 2 PUFF INHALATION ×2 (08:21→21:35)
[2023-01-01] MEDS: ASPIRIN 325 MG ENTERIC TABLET PO (09:23)
[2023-01-01] MEDS: FERROUS SULFATE 325 MG TABLET DR PO (09:23)
[2023-01-01] MEDS: levETIRAcetam 500 MG TABLET 2000 MG PO ×2 (09:23→21:06)
[2023-01-01] MEDS: lamoTRIgine 50 MG TABLET 150 MG PO (09:23)
[2023-01-01] MEDS: polyethylene glycoL 3350 17 GM POWD.PACK PO (09:24)
[2023-01-01] MEDS: SENNOSIDES 8.6 MG TABLET PO (09:24)
--- NOTE | 2023-01-01 12:19 | PM.PNORT ---
Progress Note: A&P Assessment and Plan (1) History of partial replacement of left hip joint using bipolar prosthesis: Code(s): Z96.642 - Presence of left artificial hip joint Status: Resolved Plan Doing well postop day one. Start to mobilize. Will need placement. Follow while in the hospital. Subjective Subjective Date/Time Seen: 01/01/23 12:19 Post Op day: 1 Principal diagnosis: Status post left bipolar replacement Interval history: 77-year-old female who is postop day one left bipolar replacement. Uneventful overnight. Has soreness in the surgical site as expected. Review of Systems Constitutional: Constitutional: Denies chills Exam Const: General: cooperative and no acute distress; No confusion Orientation/consciousness: No confusion Neuro: General: No confusion Extrem: Other: Left hip wound dry. Minimal bruising no swelling. Neurovascular status grossly intact left lower extremity. Calves negative. Radiology Reports: Comments: EXAM:? XR hip LT min 2V DATE: 12/31/2022 16:50 HISTORY: LT BIPOLAR HIP . COMPARISON:? 12/29/2022. FINDINGS:? Decreased mineralization. Surgical clips overlie the left pelvis/inguinal region. Uncomplicated appearing left hip arthroplasty, in good position. No unexpected radiopaque foreign body. Scattered subcutaneous gas. IMPRESSION: Expected postsurgical changes, with no radiographic evidence of procedure or hardware related complication. Reviewed, dictated and finalized at location [facility]. Objective Data Vital Signs Vital Signs: Vital Signs - 24 hr 12/31/22 12:53 12/31/22 16:23 12/31/22 16:35 Temperature 98.0 F 98.7 F Pulse Rate 80 73 71 Respiratory Rate 18 20 20 Blood Pressure 142/50 H 132/50 L 128/58 L Pulse Oximetry 97 100 100 Oxygen Delivery Room Air Simple Face Mask Simple Face Mask Oxygen Flow Rate 8 8 12/31/22 16:50 12/31/22 17:05 12/31/22 17:20 Temperature Pulse Rate 70 77 73 Respiratory Rate 20 20 20 Blood Pressure 133/45 L 127/50 L 126/50 L Pulse Oximetry 100 94 93 Oxygen Delivery Simple Face Mask Room Air Room Air Oxygen Flow Rate 8 12/31/22 17:40 12/31/22 17:55 12/31/22 18:10 Temperature 97.5 F L 97.7 F Pulse Rate 76 75 77 Respiratory Rate 20 16 14 Blood Pressure 128/52 L 134/55 L 127/59 L Pulse Oximetry 94 96 94 Oxygen Delivery Room Air Oxygen Flow Rate 12/31/22 18:40 12/31/22 19:40 01/01/23 00:00 Temperature 97.3 F L 98.4 F 97.5 F L Pulse Rate 79 79 92 Respiratory Rate 14 12 12 Blood Pressure 130/58 L 119/57 L 121/54 L Pulse Oximetry 94 96 98 Oxygen Delivery Oxygen Flow Rate 12/31/22 20:00 01/01/23 04:00 01/01/23 08:23 Temperature 99.7 F H Pulse Rate 92 101 H Respiratory Rate 12 12 Blood Pressure 111/53 L Pulse Oximetry 98 97 95 Oxygen Delivery Room Air Room Air Oxygen Flow Rate 01/01/23 08:00 01/01/23 09:50 01/01/23 08:00 Temperature 98.4 F Pulse Rate 98 Respiratory Rate 14 Blood Pressure 112/49 L Pulse Oximetry 98 Oxygen Delivery Room Air Room Air Oxygen Flow Rate 01/01/23 11:00 Temperature Pulse Rate 107 H Respiratory Rate 22 H Blood Pressure 92/48 L Pulse Oximetry 96 Oxygen Delivery Oxygen Flow Rate Intake/Output Intake/Output: Intake & Output 12/29/22 12/30/22 12/31/22 01/01/23 23:59 23:59 23:59 23:59 Intake Total 240 / 240 1290 / 1290 1400 / 1400 1720 / 1720 Output Total 200 / 200 2150 / 2150 200 / 200 1850 / 1850 Balance 40 / 40 -860 / -860 1200 / 1200 -130 / -130 Meds/Results Medications: Active Medications Generic Name Dose Route Start Last Admin Trade Name Freq PRN Reason Stop Dose Admin Acetaminophen 650 mg 12/31/22 17:42 Acetaminophen 325 Mg Tablet PO Q6H PRN Mild Pain (1-3) or Fever Hydrocodone Bitart/Acetaminophen 1 tab 12/31/22 17:42 01/01/23 06:27 Hydr
[2023-01-01] MEDS: ACETAMINOPHEN 325 MG TABLET 650 MG PO ×2 (12:47→21:07)
[2023-01-01] MEDS: SENNA/DOCUSATE SODIUM TABLET 2 TAB PO (12:48)
--- NOTE | 2023-01-01 12:52 | PCPTNOTE ---
Attempted to see patient for PT, however patient was eating lunch.
[2023-01-01] MEDS: FLUOROMETHOLONE 0.1% OP SUSP 5 ML BTL 1 DROP RIGHT EYE (12:59)
[2023-01-01] MEDS: DOCUSATE SODIUM LIQ 100 MG/10 ML UDC 50 MG PO ×2 (13:01→18:17)
--- NOTE | 2023-01-01 14:22 | P.PNAN_ITS ---
Anes - Prog Note Post-Op Date/Time: 01/01/23 14:22 Vital Signs: Last Vital Signs Temp 36.9 C 01/01/23 08:00 Pulse 107 H 01/01/23 11:00 Resp 22 H 01/01/23 11:00 BP 92/48 L 01/01/23 11:00 Pulse Ox 96 01/01/23 11:00 O2 Del Method Room Air 01/01/23 09:50 O2 Flow Rate 8 12/31/22 16:50 Pain Score (VAS): asleep I/O: Intake & Output 12/31/22 01/01/23 01/01/23 23:59 07:59 15:59 Intake Total 400 1600 1120 Output Total 200 1400 450 Balance 200 200 670 Laboratory Tests 01/01/23 06:17 01/01/23 06:17 01/01/23 06:17 WBC 11.9 H RBC 3.09 L Hgb 9.6 L Hct 31.4 L MCV 101.6 H MCH 31.1 MCHC 30.6 L RDW 12.3 Plt Count 187 MPV 10.1 Immature Gran % (Auto) 0.4 Neut % (Auto) 74.2 H Lymph % (Auto) 10.1 L Randall % (Auto) 14.4 H Eos % (Auto) 0.3 Baso % (Auto) 0.6 Lymph # (Auto) 1.20 Randall # (Auto) 1.7 H Eos # (Auto) 0.0 Baso # (Auto) 0.1 Abs Immat Gran (auto) 0.05 H Absolute Neuts (auto) 8.8 H Absolute Nucleated RBC 0.0 Nucleated RBC % 0.0 Sodium 133 L Potassium 4.0 Chloride 104 Carbon Dioxide 24 Anion Gap 5 L BUN 11 Creatinine 0.70 Estim Creat Clear Calc 53 Estimated GFR > 60 Glucose 113 H Calcium 8.1 L Patient Feedback: Patient satisfied with anesthetic care.
--- NOTE | 2023-01-01 14:48 | PM.IMPN ---
Progress Note: A&P Assessment and Plan (1) Closed fracture of femur, neck: Qualifiers: Encounter type: initial encounter Laterality: left Qualified Code(s): S72.002A - Fracture of unspecified part of neck of left femur, initial encounter for closed fracture Code(s): S72.009A - Fracture of unspecified part of neck of unspecified femur, initial encounter for closed fracture Status: Acute Assessment and Plan: See below (2) Acute pain of left hip: Code(s): M25.552 - Pain in left hip Status: Acute (3) Seizure disorder: Code(s): G40.909 - Epilepsy, unspecified, not intractable, without status epilepticus Status: Acute Assessment and Plan: continue at home medications seizure are controlled medically stable for surgery (4) Elevated liver enzymes: Code(s): R74.8 - Abnormal levels of other serum enzymes Status: Acute (5) Transcervical fracture of left femur: Qualifiers: Encounter type: initial encounter Fracture type: closed Qualified Code(s): S72.032A - Displaced midcervical fracture of left femur, initial encounter for closed fracture Code(s): S72.032A - Displaced midcervical fracture of left femur, initial encounter for closed fracture Status: Acute Assessment and Plan: pt is sp Left bipolar hip replacement (6) Elevated LFTs: Code(s): R79.89 - Other specified abnormal findings of blood chemistry Status: Acute Assessment and Plan: hepatic panel ordered, liver enzymes elevated to 879/803 today respectively which is increased dramatically even overnight US showed a 6.4 cm mass in the abdomen of uncertain etiology. The differential diagnosis includes abscess, bowel, and neoplasm CT scan showed no evidence of etiology for elevation Plan Vasovagal episode Pt having vasovagal episodes with PT when she raises up suddenly watch orthostatics continue IVF consider midodrine continue tele monitoring watch labs Subjective Date/time seen: 01/01/23 14:48 Interval history: 77-year-old female with history of stroke, balance issues, and seizures who was admitted for evaluation of left hip pain after a fall at the [facility]. She has ongoing issues with her balance for which she has participating in physical therapy. POD day 1 Sp Left bipolar hip replacement Pt is having dizziness and vasovagal when raising suddenly Pt has history of seizures but has been seizure free and is taking seizure medications regularly Review of Systems Review of Systems: Vasovagal episode Exam Narrative: General: Well-developed, nontoxic-appearing female Respiratory: Lungs are clear to auscultation bilaterally. Cardiovascular: RRR Gastrointestinal: Abdomen is soft, nontender, and nondistended with positive bowel sounds. Skin: Warm and dry. No rash or lesions on limited exam. Extremities: No cyanosis, clubbing, or edema. Radial and pedal pulses intact. Musculoskeletal: Left leg is shortened and externally rotated. She has tenderness to palpation over the left hip. Mild swelling noted. Neurological: Alert and oriented x3. No gross focal deficits to casual conversation. Psychiatric: Pleasant and cooperative with normal mood and affect. Judgment and insight intact. Objective Data Vital Signs Vital Signs: Vital Signs - 24 hr 12/31/22 16:23 12/31/22 16:35 12/31/22 16:50 Temperature 37.1 C Pulse Rate 73 71 70 Respiratory Rate 20 20 20 Blood Pressure 132/50 L 128/58 L 133/45 L Pulse Oximetry 100 100 100 Oxygen Delivery Simple Face Mask Simple Face Mask Simple Face Mask Oxygen Flow Rate 8 8 8 12/31/22 17:05 12/31/22 17:20 12/31/22 17:40 Temperature Pulse Rate 77 73 76 Respiratory Rate 20 20 20 Blood Pressure 127/50 L 126/50 L 128/52 L Pulse Oximetry 94 93 94 Oxygen Delivery Room Air Room Air Room Air Oxygen Flow Rate 12/31/22 17:55 12/31/22 18:10 12/31/22 18:40 Temperatu
[2023-01-01] MEDS: lamoTRIgine 100 MG TABLET PO ×2 (15:20→21:06)
[2023-01-01] MEDS: SODIUM CHLORIDE 0.9% IV 1,000 ML 70 ML IV CONT (15:20)
[2023-01-02] VITALS (8 sets, daily range): BP systolic 97–134; BP diastolic 43–56; PULSE 70–104; RESP 18–22; TEMP 36.7–37.1; O2SAT 91–96
[2023-01-02] MEDS: SODIUM CHLORIDE 0.9% IV 1,000 ML 70 ML IV CONT ×2 (05:27→17:50)
[2023-01-02] MEDS: ACETAMINOPHEN 325 MG TABLET 650 MG PO ×2 (05:55→21:22)
[2023-01-02] MEDS: FLUTICASONE/SALMETEROL 115-21 MCG INHALER 1 PUFF 2 PUFF INHALATION ×2 (07:18→20:52)
[2023-01-02 07:21] LABS: Hematocrit 25.7 % (37.0-47.0); Hemoglobin 8.2 g/dL (12.0-15.0); Mean Corpuscular HGB Conc 31.9 g/dl (32-36); Mean Corpuscular Hemoglobin 31.7 pg (26-34); Mean Corpuscular Volume 99.2 fl (80-100); Mean Platelet Volume 10.2 fl (7.4-10.4); Platelet Count Result 167 k/mm3 (150-375); Red Blood Count 2.59 M/mm3 (4.2-5.4); Red Cell Distribution Width 12.5 % (11.5-14.5)
[2023-01-02 07:38] LABS: Anion Gap 4 mmol/L (8-16); Blood Urea Nitrogen 11 mg/dL (7-17); Calcium 8.3 mg/dL (8.4-10.2); Carbon Dioxide 24 mmol/L (22-30); Chloride 105 mmol/L (98-107); Estimated CRCL calculation 53 ml/min; Estimated Glomerular Filt Rate > 60; Glucose 113 mg/dL (65-110); Potassium 3.9 mmol/L (3.4-5.0); Sodium 133 mmol/L (137-145)
--- NOTE | 2023-01-02 08:43 | PCPTNOTE ---
Attempted to see patient for PT, however patient was working with OT.
[2023-01-02] MEDS: SENNOSIDES 8.6 MG TABLET PO (09:05)
[2023-01-02] MEDS: polyethylene glycoL 3350 17 GM POWD.PACK PO (09:05)
[2023-01-02] MEDS: SENNA/DOCUSATE SODIUM TABLET 2 TAB PO ×2 (09:05→17:46)
[2023-01-02] MEDS: ASPIRIN 325 MG ENTERIC TABLET PO (09:05)
[2023-01-02] MEDS: lamoTRIgine 50 MG TABLET 150 MG PO (09:05)
[2023-01-02] MEDS: levETIRAcetam 500 MG TABLET 2000 MG PO ×2 (09:05→21:22)
[2023-01-02] MEDS: DOCUSATE SODIUM LIQ 100 MG/10 ML UDC 50 MG PO ×3 (09:05→17:46)
[2023-01-02] MEDS: FLUOROMETHOLONE 0.1% OP SUSP 5 ML BTL 1 DROP RIGHT EYE (09:06)
--- NOTE | 2023-01-02 11:21 | PM.PNORT ---
Progress Note: A&P Assessment and Plan (1) History of partial replacement of left hip joint using bipolar prosthesis: Code(s): Z96.642 - Presence of left artificial hip joint Status: Resolved Plan Continue therapy. Tolerating postoperative exacerbation of chronic anemia. Discharge instructions placed into chart. Following. Subjective Subjective Date/Time Seen: 01/02/23 11:21 Post Op day: 2 Principal diagnosis: Left bipolar replacement Interval history: 77-year-old female postop day two left bipolar hip replacement. Doing much better this morning than yesterday. Exam Const: General: cooperative and no acute distress GI: Inspection: non-distended Extrem: Other: Left hip wound dry with no erythema and virtually no swelling. Calves negative. Neurovascular status grossly intact left lower extremity. Exam otherwise unremarkable for any acute changes. Objective Data Vital Signs Vital Signs: Vital Signs - 24 hr 01/01/23 14:00 01/01/23 21:07 01/01/23 19:27 Temperature 98.3 F 100.2 F H 100.2 F H Pulse Rate 89 100 Respiratory Rate 14 18 Blood Pressure 121/44 L 133/50 L Pulse Oximetry 96 93 Oxygen Delivery 01/01/23 20:20 01/01/23 20:20 01/02/23 00:25 Temperature 100.2 F H 98.1 F Pulse Rate 100 100 94 Respiratory Rate 18 18 18 Blood Pressure 133/50 L 113/44 L Pulse Oximetry 93 93 91 Oxygen Delivery Room Air 01/02/23 06:00 01/02/23 07:20 01/02/23 08:00 Temperature 98.5 F Pulse Rate 104 H 74 74 Respiratory Rate 18 18 18 Blood Pressure 122/56 L Pulse Oximetry 93 93 Oxygen Delivery Room Air Intake/Output Intake/Output: Intake & Output 12/30/22 12/31/22 01/01/23 01/02/23 23:59 23:59 23:59 23:59 Intake Total 1290 / 1290 1400 / 1400 3450 / 3450 1336 / 1336 Output Total 2150 / 2150 200 / 200 1850 / 1850 350 / 350 Balance -860 / -860 1200 / 1200 1600 / 1600 986 / 986 Meds/Results Medications: Active Medications Generic Name Dose Route Start Last Admin Trade Name Freq PRN Reason Stop Dose Admin Acetaminophen 650 mg 12/31/22 17:42 01/02/23 05:55 Acetaminophen 325 Mg Tablet PO 650 mg Q6H PRN Administration Mild Pain (1-3) or Fever Hydrocodone Bitart/Acetaminophen 1 tab 12/31/22 17:42 01/01/23 06:27 Hydrocodone/Acetaminophen (*Crx) 5-325 Mg Tablet PO 1 tab Q3H PRN Administration Pain Rated 4-6 Hydrocodone Bitart/Acetaminophen 2 tab 12/31/22 17:42 Hydrocodone/Acetaminophen (*Crx) 5-325 Mg Tablet PO Q6H PRN Pain Rated 7-10 Albuterol 2 puff 12/29/22 21:15 Albuterol Sulfate (*Sp) Aerosol 1 Puff INHALATION PRN PRN Shortness Of Breath Or Wheezing Aspirin 325 mg 01/01/23 09:00 01/02/23 09:05 Aspirin 325 Mg Enteric Tablet PO 325 mg QAM BYRON Administration Diphenhydramine HCl 25 mg 12/29/22 21:15 12/31/22 20:32 Diphenhydramine Hcl Cap 25 Mg Capsule PO 25 mg HS PRN Administration Itching Docusate Sodium 50 mg 12/30/22 09:00 01/02/23 09:05 Docusate Sodium Liq 100 Mg/10 Ml Udc PO 01/29/23 08:59 50 mg TID BYRON Administration Ferrous Sulfate 325 mg 12/30/22 09:00 01/01/23 09:23 Ferrous Sulfate [address] PO 325 mg Q48H BYRON Administration Fluorometholone 1 drop 12/30/22 09:00 01/02/23 09:06 Fluorometholone 0.1% Op Susp 5 Ml Btl RIGHT EYE 1 drop DAILY BYRON Administration Sodium Chloride 1,000 mls @ 70 mls/hr 01/01/23 15:10 01/02/23 05:27 Normal Saline Iv IV CONT 70 mls/hr .[id number] BYRON Administration Lamotrigine 100 mg 12/29/22 21:00 01/01/23 21:06 Lamotrigine 100 Mg Tablet PO 100 mg DAILY@1400,2100 BYRON Administration Lamotrigine 150 mg 12/30/22 09:00 01/02/23 09:05 Lamotrigine 50 Mg Tablet PO 01/29/23 08:59 150 mg DAILY BYRON Administration Levetiracetam 2,000 mg 12/30/22 09:00 01/02/23 09:05 Levetiracetam 500 Mg Tablet PO 2,000 mg Q12HR BYRON Administration Morphine Sulfate 2 mg 12/31/22 17:4
[2023-01-02] MEDS: lamoTRIgine 100 MG TABLET PO ×2 (14:19→21:22)
--- NOTE | 2023-01-02 15:19 | PM.IMPN ---
Progress Note: A&P Assessment and Plan (1) Closed fracture of femur, neck: Qualifiers: Encounter type: initial encounter Laterality: left Qualified Code(s): S72.002A - Fracture of unspecified part of neck of left femur, initial encounter for closed fracture Code(s): S72.009A - Fracture of unspecified part of neck of unspecified femur, initial encounter for closed fracture Status: Acute Assessment and Plan: See below (2) Acute pain of left hip: Code(s): M25.552 - Pain in left hip Status: Acute (3) Seizure disorder: Code(s): G40.909 - Epilepsy, unspecified, not intractable, without status epilepticus Status: Acute Assessment and Plan: continue at home medications seizure are controlled medically stable for surgery (4) Elevated liver enzymes: Code(s): R74.8 - Abnormal levels of other serum enzymes Status: Acute (5) Transcervical fracture of left femur: Qualifiers: Encounter type: initial encounter Fracture type: closed Qualified Code(s): S72.032A - Displaced midcervical fracture of left femur, initial encounter for closed fracture Code(s): S72.032A - Displaced midcervical fracture of left femur, initial encounter for closed fracture Status: Acute Assessment and Plan: pt is sp Left bipolar hip replacement (6) Elevated LFTs: Code(s): R79.89 - Other specified abnormal findings of blood chemistry Status: Acute Assessment and Plan: hepatic panel ordered, liver enzymes elevated to 879/803 today respectively which is increased dramatically even overnight US showed a 6.4 cm mass in the abdomen of uncertain etiology. The differential diagnosis includes abscess, bowel, and neoplasm CT scan showed no evidence of etiology for elevation Plan Vasovagal episode Pt having vasovagal episodes with PT when she raises up suddenly watch orthostatics continue IVF start midodrine continue tele monitoring watch labs hb is stable at 8 today Subjective Date/time seen: 01/02/23 15:19 Interval history: 77-year-old female with history of stroke, balance issues, and seizures who was admitted for evaluation of left hip pain after a fall at the [facility]. She has ongoing issues with her balance for which she has participating in physical therapy. POD day 2 Sp Left bipolar hip replacement doing well trying to ambulate with theraphy Pt is having dizziness and vasovagal when raising suddenly Bp running low in hospital Pt has history of seizures but has been seizure free and is taking seizure medications regularly seizures are controlled Review of Systems Review of Systems: Vasovagal episode episodes in hospital Exam Narrative: General: Well-developed Respiratory: Lungs are clear to auscultation bilaterally. Cardiovascular: RRR Gastrointestinal: Abdomen is soft, nontender, and nondistended with positive bowel sounds. Skin: Warm and dry. No rash or lesions on limited exam. Extremities: No cyanosis, clubbing, or edema. Radial and pedal pulses intact. Musculoskeletal: Left leg is shortened and externally rotated. She has tenderness to palpation over the left hip. Mild swelling noted. Neurological: Alert and oriented x3. No gross focal deficits to casual conversation. Psychiatric: Pleasant and cooperative with normal mood and affect. Judgment and insight intact. Objective Data Vital Signs Vital Signs: Vital Signs - 24 hr 01/01/23 21:07 01/01/23 19:27 01/01/23 20:20 Temperature 37.9 C H 37.9 C H 37.9 C H Pulse Rate 100 100 Respiratory Rate 18 18 Blood Pressure 133/50 L 133/50 L Pulse Oximetry 93 93 Oxygen Delivery 01/01/23 20:20 01/02/23 00:25 01/02/23 06:00 Temperature 36.7 C 36.9 C Pulse Rate 100 94 104 H Respiratory Rate 18 18 18 Blood Pressure 113/44 L 122/56 L Pulse Oximetry 93 91 93 Oxygen Delivery Room Air 01/02/23 07:20 01/02/23 08:00 01/02/23 14:0
[2023-01-02] MEDS: MIDODRINE HCL 10 MG TABLET PO (17:46)
[2023-01-03] VITALS (7 sets, daily range): BP systolic 107–125; BP diastolic 44–57; PULSE 81–95; RESP 14–20; TEMP 36.9–37.3; O2SAT 97–100
[2023-01-03] MEDS: FLUTICASONE/SALMETEROL 115-21 MCG INHALER 1 PUFF 2 PUFF INHALATION ×2 (08:36→20:34)
[2023-01-03] MEDS: lamoTRIgine 50 MG TABLET 150 MG PO (09:03)
[2023-01-03] MEDS: ASPIRIN 325 MG ENTERIC TABLET PO (09:04)
[2023-01-03] MEDS: SENNOSIDES 8.6 MG TABLET PO (09:04)
[2023-01-03] MEDS: levETIRAcetam 500 MG TABLET 2000 MG PO ×2 (09:04→20:51)
[2023-01-03] MEDS: HYDROcodone/acetaminophen (*CRX) 5-325 MG TABLET 1 TAB PO (09:04)
[2023-01-03] MEDS: SENNA/DOCUSATE SODIUM TABLET 2 TAB PO ×2 (09:04→17:44)
[2023-01-03] MEDS: FERROUS SULFATE 325 MG TABLET DR PO (09:04)
[2023-01-03] MEDS: FLUOROMETHOLONE 0.1% OP SUSP 5 ML BTL 1 DROP RIGHT EYE (09:05)
[2023-01-03] MEDS: polyethylene glycoL 3350 17 GM POWD.PACK PO (09:05)
[2023-01-03] MEDS: DOCUSATE SODIUM LIQ 100 MG/10 ML UDC 50 MG PO ×3 (09:08→17:44)
[2023-01-03 09:15] LABS: Hematocrit 28.9 % (37.0-47.0); Hemoglobin 8.7 g/dL (12.0-15.0); Mean Corpuscular HGB Conc 30.1 g/dl (32-36); Mean Corpuscular Hemoglobin 31.3 pg (26-34); Mean Platelet Volume 10.5 fl (7.4-10.4); Platelet Count Result 205 k/mm3 (150-375); Red Blood Count 2.78 M/mm3 (4.2-5.4); Red Cell Distribution Width 12.2 % (11.5-14.5)
[2023-01-03 09:22] LABS: Anion Gap 9 mmol/L (8-16); Blood Urea Nitrogen 11 mg/dL (7-17); Calcium 8.6 mg/dL (8.4-10.2); Carbon Dioxide 23 mmol/L (22-30); Chloride 105 mmol/L (98-107); Estimated CRCL calculation 53 ml/min; Estimated Glomerular Filt Rate > 60; Glucose 108 mg/dL (65-110); Potassium 3.7 mmol/L (3.4-5.0); Sodium 137 mmol/L (137-145)
[2023-01-03 09:42] LABS: Alanine Aminotransferase 113 U/L (6-35); Albumin Level 3.4 g/dL (3.5-5.1); Alkaline Phosphatase 80 U/L (38-126); Aspartate Amino Transferase 42 U/L (14-36); Bilirubin,Total 0.6 mg/dL (0.2-1.3)
--- NOTE | 2023-01-03 14:46 | PM.IMPN ---
Progress Note: A&P Assessment and Plan (1) History of partial replacement of left hip joint using bipolar prosthesis: Code(s): Z96.642 - Presence of left artificial hip joint Status: Resolved Assessment and Plan: Doing well post-op Plan for discharge to [facility] 01/05/23 per care coordination (2) Elevated liver enzymes: Code(s): R74.8 - Abnormal levels of other serum enzymes Status: Acute Assessment and Plan: ALT 12/31 803, 01/03 114 Likely rxn to anesthesia (3) Seizure disorder: Code(s): G40.909 - Epilepsy, unspecified, not intractable, without status epilepticus Status: Acute Assessment and Plan: Continue meds Subjective Date/time seen: 01/03/23 14:46 Interval history: No further fainting spells. No dizziness. Doing better with physical therapy. Tolerating diet. Denied chest pain or shortness or swelling. Denied GI or issues. Review of Systems Review of Systems: All systems reviewed & are unremarkable except as noted in HPI and below Exam Narrative: HEENT: PERRL, sclerae nonicteric, pharyngeal mucosa pink and intact NECK: No JVD, adenopathy, or thyromegaly CHEST: Clear to auscultation. Normal effort. HEART: NL S1/S2, regular, no murmur ABDOMEN: BS+, soft, nontender, no mass, no bruits EXTREMITIES: No cyanosis, edema, or clubbing NEUROLOGIC: CN intact and symmetric to inspection. MUSCULOSKELETAL: Tone and strength symmetric. PSYCH: Alert. Oriented to person, place, and time. Objective Data Vital Signs Vital Signs: Vital Signs - 24 hr 01/02/23 20:54 01/02/23 21:59 01/02/23 20:00 Temperature 98.4 F 98.4 F Pulse Rate 70 90 90 Respiratory Rate 18 22 H 22 H Blood Pressure 134/56 L 134/56 L Pulse Oximetry 96 96 Oxygen Delivery 01/02/23 20:00 01/03/23 02:25 01/03/23 02:25 Temperature Pulse Rate 90 Respiratory Rate 22 H Blood Pressure 115/52 L 113/44 L Pulse Oximetry 96 Oxygen Delivery Room Air 01/03/23 02:26 01/03/23 05:58 01/03/23 08:00 Temperature 98.4 F Pulse Rate 81 81 Respiratory Rate 20 20 Blood Pressure 110/52 L 125/53 L Pulse Oximetry 100 100 Oxygen Delivery Room Air Intake/Output Intake/Output: Intake & Output 12/31/22 01/01/23 01/02/23 01/03/23 23:59 23:59 23:59 23:59 Intake Total 1400 3450 2816 320 Output Total 200 1850 350 Balance 1200 1600 2466 320 Meds/Results Medications: Active Medications Generic Name Dose Route Start Last Admin Trade Name Freq PRN Reason Stop Dose Admin Acetaminophen 650 mg 12/31/22 17:42 01/02/23 21:22 Acetaminophen 325 Mg Tablet PO 650 mg Q6H PRN Administration Mild Pain (1-3) or Fever Hydrocodone Bitart/Acetaminophen 1 tab 12/31/22 17:42 01/03/23 09:04 Hydrocodone/Acetaminophen (*Crx) 5-325 Mg Tablet PO 1 tab Q3H PRN Administration Pain Rated 4-6 Hydrocodone Bitart/Acetaminophen 2 tab 12/31/22 17:42 Hydrocodone/Acetaminophen (*Crx) 5-325 Mg Tablet PO Q6H PRN Pain Rated 7-10 Albuterol 2 puff 12/29/22 21:15 Albuterol Sulfate (*Sp) Aerosol 1 Puff INHALATION PRN PRN Shortness Of Breath Or Wheezing Aspirin 325 mg 01/01/23 09:00 01/03/23 09:04 Aspirin 325 Mg Enteric Tablet PO 325 mg QAM BYRON Administration Diphenhydramine HCl 25 mg 12/29/22 21:15 12/31/22 20:32 Diphenhydramine Hcl Cap 25 Mg Capsule PO 25 mg HS PRN Administration Itching Docusate Sodium 50 mg 12/30/22 09:00 01/03/23 09:08 Docusate Sodium Liq 100 Mg/10 Ml Udc PO 01/29/23 08:59 50 mg TID BYRON Administration Ferrous Sulfate 325 mg 12/30/22 09:00 01/03/23 09:04 Ferrous Sulfate [address] PO 325 mg Q48H BYRON Administration Fluorometholone 1 drop 12/30/22 09:00 01/03/23 09:05 Fluorometholone 0.1% Op Susp 5 Ml Btl RIGHT EYE 1 drop DAILY BYRON Administration Sodium Chloride 1,000 mls @ 70 mls/hr 01/01/23 15:10 01/03/23 11:31 Normal Saline
--- NOTE | 2023-01-03 15:02 | PC.NURSE ---
Notified provider of IV being pulled out last night. OK to leave out. Good PO intake and blood pressure readings. Will monitor.
[2023-01-03] MEDS: lamoTRIgine 100 MG TABLET PO ×2 (15:53→20:51)
--- NOTE | 2023-01-04 01:01 | PC.NURSE ---
Daylight Savings Time For Daylight Savings Time Ending in the Fall - Clocks are moved back. For Daylight Savings Time Beginning in the Spring - Clocks are moved ahead. For [facility], the time of change occurs at 0200 hrs. Time is taken from the booking agent. This entry on the patient's chart recognizes the change in time reflected during documentation. Example: 2 entries for vital signs may be charted for 0200 hrs.
[2023-01-04 06:00] VITALS: BP 121/58; PULSE 88; RESP 18; TEMP 36.7; O2SAT 97
[2023-01-04 06:49] LABS: Hematocrit 24.7 % (37.0-47.0); Hemoglobin 7.6 g/dL (12.0-15.0); Mean Corpuscular HGB Conc 30.8 g/dl (32-36); Mean Corpuscular Hemoglobin 30.6 pg (26-34); Mean Corpuscular Volume 99.6 fl (80-100); Mean Platelet Volume 10.5 fl (7.4-10.4); Platelet Count Result 211 k/mm3 (150-375); Red Blood Count 2.48 M/mm3 (4.2-5.4); Red Cell Distribution Width 12.1 % (11.5-14.5); White Blood Count 6.5 K/mm3 (4.5-10.0)
[2023-01-04 07:08] LABS: Alanine Aminotransferase 91 U/L (6-35); Alkaline Phosphatase 71 U/L (38-126); Anion Gap 6 mmol/L (8-16); Aspartate Amino Transferase 32 U/L (14-36); Bilirubin,Total 0.6 mg/dL (0.2-1.3); Blood Urea Nitrogen 12 mg/dL (7-17); Calcium 8.2 mg/dL (8.4-10.2); Carbon Dioxide 24 mmol/L (22-30); Chloride 104 mmol/L (98-107); Estimated CRCL calculation 61 ml/min; Estimated Glomerular Filt Rate > 60; Glucose 98 mg/dL (65-110); Potassium 3.6 mmol/L (3.4-5.0); Sodium 134 mmol/L (137-145)
[2023-01-04 08:00] VITALS: PULSE 88; RESP 18; O2SAT 97
[2023-01-04] MEDS: DOCUSATE SODIUM LIQ 100 MG/10 ML UDC 50 MG PO (08:22)
[2023-01-04] MEDS: SENNOSIDES 8.6 MG TABLET PO (08:23)
[2023-01-04] MEDS: levETIRAcetam 500 MG TABLET 2000 MG PO (08:23)
[2023-01-04] MEDS: SENNA/DOCUSATE SODIUM TABLET 2 TAB PO (08:23)
[2023-01-04] MEDS: lamoTRIgine 50 MG TABLET 150 MG PO (08:23)
[2023-01-04] MEDS: ASPIRIN 325 MG ENTERIC TABLET PO (08:23)
[2023-01-04] MEDS: FLUTICASONE/SALMETEROL 115-21 MCG INHALER 1 PUFF 2 PUFF INHALATION (08:46)
[2023-01-04] MEDS: ACETAMINOPHEN 325 MG TABLET 650 MG PO (10:19)
--- NOTE | 2023-01-04 10:22 | PM.DS ---
DS: Admitting Diagnosis Discharge Date 01/04/2023 Admitting Diagnosis Fracture left hip DS: Discharge Diagnosis Discharge Diagnosis (1) History of partial replacement of left hip joint using bipolar prosthesis: Code(s): Z96.642 - Presence of left artificial hip joint Status: Resolved Assessment and Plan: Doing well post-op Plan for discharge to [facility] 01/05/23 per care coordination (2) Elevated liver enzymes: Code(s): R74.8 - Abnormal levels of other serum enzymes Status: Acute Assessment and Plan: ALT 12/31 803, 01/03 114, 01/04 ALT 91 & AST 32 Likely rxn to anesthesia (3) Seizure disorder: Code(s): G40.909 - Epilepsy, unspecified, not intractable, without status epilepticus Status: Acute Assessment and Plan: Continue meds Plan Fracture left hip, s/p bipolar prosthesis DS: Summary Hospital Course Reason for hospitalization: Fall from standing height with fracture of left hip Hospital Course: Admitted December 29 with pain left hip and inability to ambulate for fall from standing height. X-ray revealed displaced fracture. She underwent a bipolar prosthesis filled on December 31. Had elevation of liver enzymes postoperatively and outlined above that resolved and was thought to be anesthesia reaction. Vital signs remained stable with the exception of episodes of hypotension and syncope a for therapy. Hemoglobin was 10.8 on admission 7.6 at discharge. No orthostatic symptoms noted on day of discharge. Was tolerating PT and OT well. Was accepted for transfer to [facility] on January 04, 2023. Time Spent with Patient Time attestation: Total time spent providing and/or coordinating discharge services: 32 min Exam Narrative: HEENT: PERRL, sclerae nonicteric, pharyngeal mucosa pink and intact NECK: No JVD, adenopathy, or thyromegaly CHEST: Clear to auscultation. Normal effort. HEART: NL S1/S2, regular, no murmur ABDOMEN: BS+, soft, nontender, no mass, no bruits EXTREMITIES: No cyanosis, edema, or clubbing NEUROLOGIC: CN intact and symmetric to inspection. MUSCULOSKELETAL: Tone and strength symmetric. PSYCH: Alert. Oriented to person, place, and time. DS: Data Data Completed and Pending Pending studies at discharge: Pending at discharge 12/31/22 15:11 Surgical [PTH] Routine Labs on day of discharge: Labs from last 24 hours 01/04/23 06:00 WBC 6.5 RBC 2.48 L Hgb 7.6 L Hct 24.7 L MCV 99.6 MCH 30.6 MCHC 30.8 L RDW 12.1 Plt Count 211 MPV 10.5 H Sodium 134 L Potassium 3.6 Chloride 104 Carbon Dioxide 24 Anion Gap 6 L BUN 12 Creatinine 0.60 L Estim Creat Clear Calc 61 Estimated GFR > 60 Glucose 98 Calcium 8.2 L Total Bilirubin 0.6 AST 32 ALT 91 H Alkaline Phosphatase 71 Total Protein 6.0 L Albumin 3.0 L Discharge Plan Discharge Consulting providers: William Rosa Discharging Clinician: Hermes Persaud Patient Disposition: SNF Activity: june shower Diet: heart healthy Wound Care Instructions: other - see discharge instructions Discharge Instructions: For Dr. Rosa: Walker use full-time. Okay to be weight-bearing as tolerated left lower extremity. Wound can be open to air. Okay to use shower chair. Please contact my office [phone] for follow-up appointment to be seen in early March for x-ray of the left hip. Enteric-coated aspirin 325 milligram daily times six weeks for DVT prophylaxis. Arthritis formula Tylenol one tablet 3 times a day as needed for post-surgical pain. Stand Alone Forms: General Discharge Information Discharge Medications: New aspirin 325 mg Tablet,Delayed Release (/Ec) 325 mg PO QAM Qty: 30 0RF sennosides-docusate sodium [Senokot-S] 8.6-50 mg Tablet 2 tab-cap PO BID Qty: 30 0RF Continu
[2023-01-04 13:02] LABS: SARS-CoV-2 RNA PCR Negative (Negative)
== END 2023-01-04 14:48 | DRG 522 ==
LOC: ANHED 13:12 → ANH3MEDSUR 16:33
PROVIDERS: Family Medicine; Nurse Practitioner; Orthopaedic Surgery; Physician Assistant; Admitting Provider General Practice; Emergency Provider Preventive Medicine Aerospace Medicine; Visit Provider Internal Medicine
PROC: 0SRS01A Replacement of Left Hip Joint, Femoral Surface with Metal Synthetic Substitute, Uncemented, Open Approach (ICD-10-PCS; CPT 27125; principal; 2022-12-31 14:00)
DX: S72.032A Displaced midcervical fracture of left femur, initial encounter for closed fracture (principal); G40.909 Epilepsy, unspecified, not intractable, without status epilepticus; M17.0 Bilateral primary osteoarthritis of knee; M79.7 Fibromyalgia; R74.8 Abnormal levels of other serum enzymes; R55 Syncope and collapse; W19.XXXA Unspecified fall, initial encounter; Z11.52 Encounter for screening for COVID-19; Z94.7 Corneal transplant status; Z86.73 Personal history of transient ischemic attack (TIA), and cerebral infarction without residual deficits; Z85.3 Personal history of malignant neoplasm of breast
CPT/HCPCS: 36415; 70450; 71045; 72125; 73502; 74177; 76705; 80048; 80053; 80076; 80307; 81001; 82550; 83690; 84443; 85025; 85027; 85610; 85730; 86850; 86900; 86901; 87635; 88307; 88311; 93005; 94640; 96374; 96375; 96376; 97110; 97161; 97166; 97530; 97535; 99285; A9270; C1713; C1776; G0378; J0171; J0690; J1100; J2250; J2270; J2405; J2704; J2710; J2795; J3010; J7030; J7120; Q9967

== ENCOUNTER 2023-08-27 13:28 | Emergency (ER) | payer MEDICARE, SELFPAY ==
[2023-08-27 13:35] VITALS: BP 127/55; PULSE 64; RESP 16; TEMP 36.6; O2SAT 97
--- NOTE | 2023-08-27 13:36 | ED.GENADULT ---
HPI - General Adult General Stated complaint: skin concern Time Seen by Provider: 08/27/23 13:43 Source: patient Mode of arrival: ambulatory Limitations: no limitations History of Present Illness HPI narrative: 78 y/o female presented for c/o skin lesion to left back, first noticed over one month ago. Pt has an appointment with her established artificial limb maker, however it is not until September, so she wanted to be seen for evaluation. Endorses occasional itching to the site, feels like it snags on clothing. Denies bleeding or pain to the site. Has not applied anything. Denies history of skin cancer. Pt also reports a flat pink/brown discoloration to the left eyebrow, the site is where she had a 'brown spot' burned off. Denies any itching, pain, or drainage to this site. states the skin is just changing color. Related Data Home Medications Medication Instructions Recorded Confirmed albuterol sulfate 90 mcg/actuation 2 inh inhalation PRN Shortness Of 09/01/22 03/05/23 aerosol inhaler Breath Or Wheezing lamotrigine 100 mg tablet 100 mg PO BID 09/01/22 03/05/23 levetiracetam 1,000 mg tablet 2,000 mg PO BID 09/01/22 03/05/23 ferrous sulfate 325 mg (65 mg 325 mg PO EVERY OTHER DAY 12/29/22 03/05/23 iron) tablet (Iron (ferrous sulfate)) fluorometholone 0.1 % eye 1 drp RIGHT EYE DAILY 12/29/22 03/05/23 drops,suspension fluticasone 250 mcg-salmeterol 50 1 ea inhalation BID 12/29/22 03/05/23 mcg/dose blistr powdr for inhalation (Advair Diskus) lamotrigine 150 mg tablet 150 mg PO DAILY 12/29/22 03/05/23 melatonin 10 mg tablet 10 mg PO HS 12/29/22 01/14/23 Allergies Allergy/AdvReac Type Severity Reaction Status Date / Time No Known Allergies Allergy Verified 08/27/23 13:45 Review of Systems Review of Systems: CONSTITUTIONAL: Denies body aches, fever, chills, or sweats. EYES: Denies visual changes, redness, or discharge. ENT: Denies rhinorrhea, congestion CARDIOVASCULAR: Denies chest pain, palpitations, or edema. RESPIRATORY: Denies cough or dyspnea. GASTROINTESTINAL: Denies abdominal pain, nausea, vomiting, or diarrhea. SKIN: Per skin lesion to left back and left eyebrow MUSCULOSKELETAL: Denies back pain, joint pain, or myalgia. NEUROLOGIC: Denies headache, numbness, tingling, or weakness. [facility] Past Medical History Medical History Breast cancer and mastectomy with immediate reconstruction. That was several decades ago. She said she is considered cancer free. Cerebral arterial aneurysm status post coil embolization Fibromyalgia History of partial replacement of left hip joint using bipolar prosthesis December 31, 2022 History of stress test (~05/2021) History of torn meniscus of knee (~1999) Primary osteoarthritis of knees, bilateral Seizure disorder Transcervical fracture of left femur Surgical History Surgical History History of appendectomy (2018) History of cholecystectomy (01/2016) History of cornea transplant History of hip surgery 12/31/22- Left Bipolar Hip (Dr Rosa) History of hysterectomy (09/1989) History of right mastectomy (08/1986) for breast cancer History of tonsillectomy Status post coil embolization of cerebral aneurysm (08/2012) Family History Family History Mother Asthma History of blood clots Grandparent Diabetes mellitus Social History Social History Social History: Surrogate medical decision maker: Thelma Elliott, daughter. Code status: Full code. Smoking status: Never smoker Second hand tobacco smoke exposure: Yes Alcohol intake: never Substance use: never Substance use type: does not use Current Housing: Decline to Answer Concerned About Future Housing: Decline to Answer Difficulty Paying Gas/Electric Bills: Decline to Answer Di
== END 2023-08-27 14:04 | disposition home or self-care (01) ==
PROVIDERS: Emergency Provider Nurse Practitioner Family
DX: L98.9 Disorder of the skin and subcutaneous tissue, unspecified (principal); M79.7 Fibromyalgia; M17.0 Bilateral primary osteoarthritis of knee; G40.909 Epilepsy, unspecified, not intractable, without status epilepticus; Z85.3 Personal history of malignant neoplasm of breast; Z90.11 Acquired absence of right breast and nipple; Z94.7 Corneal transplant status
CPT/HCPCS: 99211; G0463

== ENCOUNTER 2024-02-04 13:46 | Outpatient (CLI) | payer MEDICARE, SELFPAY ==
--- NOTE | ~2024-02-04 | MM_ITS ---
EXAMINATION: MM screening adrien LT w nicolle HISTORY: Screening TECHNIQUE: Craniocaudal and mediolateral oblique 3-D tomosynthesis images were obtained and synthetic 2-D images were generated. CAD analysis was submitted and interpreted. COMPARISON: 03/27/2021 BREAST PARENCHYMAL COMPOSITION: Not dense: There are scattered areas of fibroglandular density. FINDINGS: There is no evidence of suspicious mass, calcification, or architectural distortion to sugg est malignancy in either breast. There has been no suspicious interval change. IMPRESSION: 1. No mammographic evidence of malignancy. 2. Recommend routine screening mammography in one year. BI-RADS Category 1: Negative Reviewed, dictated and finalized at location B. WIRE PHOTO OPERATOR
== END 2024-02-04 13:47 | disposition home or self-care (01) ==
LOC: MICIMG 13:47
DX: Z12.31 Encounter for screening mammogram for malignant neoplasm of breast (principal)
CPT/HCPCS: 77063; 77067

== ENCOUNTER 2024-02-23 14:34 | Emergency (ER) | payer MEDICARE, SELFPAY ==
--- NOTE | ~2024-02-23 | XR_ITS ---
CHEST RADIOGRAPH CLINICAL HISTORY: cough, SOB . COMPARISON: Reference is made to CT examination of the abdomen and pelvis dated 12/30/2020 TECHNIQUE: Single portable view of the chest. FINDINGS Loop recorder projects over the cardiomediastinal silhouette. The remainder of the cardiomediastinal silhouette is otherwise unremarkable. Calcified granuloma within the left lung base. The remainder of the lungs are clear. Visualized osseous structures and soft tissues are unremarkable. IMPRESSION: No focal infiltrate or effusion. Reviewed, dictated and finalized at location A. ENTRY ASSOCIATE
[2024-02-23 14:59] VITALS: BP 122/53; PULSE 89; RESP 20; TEMP 36.9; O2SAT 98
--- NOTE | 2024-02-23 15:16 | ED_ITS ---
HPI - URI/Sore Throat General Chief Complaint: Upper Respiratory Infection Stated Complaint: cough Time Seen by Provider: 02/23/24 15:16 Source: patient Mode of arrival: ambulatory Limitations: no limitations History of Present Illness HPI Narrative: 79 yo F presents with c/o cough, chest congestion, mild wheezing for 4 to 5 days. Cough getting progressively worse, worst at night. Afebrile. hx of asthma. Has been using inhalers without relief. Also taking OTC mucinex. No respiratory distress noted. All systems reviewed and negative except as noted above. Related Data Home Medications ?Medication ?Instructions ?Recorded ?Confirmed ?Last Taken ?Type albuterol sulfate 90 mcg/actuation 2 inh inhalation PRN Shortness Of 09/01/22 03/05/23 Unknown History aerosol inhaler Breath Or Wheezing lamotrigine 100 mg tablet 100 mg PO BID 09/01/22 03/05/23 Unknown History levetiracetam 1,000 mg tablet 2,000 mg PO BID 09/01/22 03/05/23 Unknown History ferrous sulfate 325 mg (65 mg 325 mg PO EVERY OTHER DAY 12/29/22 03/05/23 Unknown History iron) tablet (Iron (ferrous sulfate)) fluorometholone 0.1 % eye 1 drp RIGHT EYE DAILY 12/29/22 03/05/23 Unknown History drops,suspension fluticasone 250 mcg-salmeterol 50 1 ea inhalation BID 12/29/22 03/05/23 Unknown History mcg/dose blistr powdr for inhalation (Advair Diskus) lamotrigine 150 mg tablet 200 mg PO DAILY 12/29/22 02/23/24 Unknown History melatonin 10 mg tablet 10 mg PO HS 12/29/22 01/14/23 Unknown History Allergies Allergy/AdvReac Type Severity Reaction Status Date / Time No Known Allergies Allergy Verified 02/23/24 14:54 Review of Systems Review of Systems: CONSTITUTIONAL: Denies fever, chills, or sweats. reports fatigue. EYES: Denies visual changes, redness, or discharge. ENT: reports rhinorrhea, congestion. Denies sore throat, or otalgia. CARDIOVASCULAR: Denies chest pain, palpitations, or edema. RESPIRATORY: Reports cough, chest congestion, mild wheezing and dyspnea with exertion. GASTROINTESTINAL: Denies abdominal pain, nausea, vomiting, or diarrhea. GENITOURINARY: Denies dysuria or hematuria. SKIN: Denies rash or itching. MUSCULOSKELETAL: Denies back pain, joint pain, or myalgia. NEUROLOGIC: Denies headache, numbness, or weakness. PSYCHIATRIC: Denies anxiety or depression. All other systems reviewed are negative, except as documented in HPI. [facility] Past Medical History Medical History Breast cancer and mastectomy with immediate reconstruction. That was several decades ago. She said she is considered cancer free. Cerebral arterial aneurysm status post coil embolization Fibromyalgia History of partial replacement of left hip joint using bipolar prosthesis December 31, 2022 History of stress test (~05/2021) History of torn meniscus of knee (~1999) Primary osteoarthritis of knees, bilateral Seizure disorder Transcervical fracture of left femur Surgical History Surgical History History of appendectomy (2018) History of cholecystectomy (01/2016) History of cornea transplant History of hip surgery 12/31/22- Left Bipolar Hip (Dr Rosa) History of hysterectomy (09/1989) History of right mastectomy (08/1986) for breast cancer History of tonsillectomy Status post coil embolization of cerebral aneurysm (08/2012) Family History Family History Mother Asthma History of blood clots Grandparent Diabetes mellitus Social History Social History Social History: Surrogate medical decision maker: Thelma Elliott, daughter. Code status: Full code. Smoking status: Never smoker Second hand tobacco smoke exposure: Yes Alcohol intake: never Substance use: never Substance use type: does not use Current Housing: Decline to Answer Concerned About Future Housing: Decline to Answer Difficulty Paying Gas/Electric Bills: Decline to Answer Difficulty Paying for Meds: Decline to Answer Currently Unemployed: Decline to Answer Education: Decline to Answer Difficulty w/ Childcare or Family Care: Decline to Answer Living arrangements: alone Occupation/Education: retired Spiritual care concerns: No Comments At time of signature, agree with nursing past medical, surgical, social and family history. There is no relevant family history pertinent to the presenting complaint. Exam Narrative: GENERAL: This is a well-nourished, well-developed patient, patient ill- appearing but no acute distress HEAD: normocephalic, atraumatic. EYES: PERRL. Sclera clear/white. Vision is grossly intact. EARS: External ears normal, auditory canals clear and without drainage, TMs normal without perforation. Hearing grossly intact. NOSE: External nose normal with Mild congestion, clear nasal drainage THROAT: Mucous membranes moist, posterior pharynx clear. NECK: Neck supple, non-tender without lymphadenopathy, masses or thyromegaly. CARDIOVASCULAR: Regular rate and rhythm without murmurs, gallops, or rubs. RESPIRATORY:mild expiratory wheezing on expiration to bilateral lower lung bright. Breath sounds equal bilaterally. No rales, or rhonchi. SKIN: warm, Dry, intact with no suspicious lesions or rash, good texture and turgor. NEURO: awake, alert, and oriented to person, place and time. There were no obvious focal neurologic abnormalities. EXTREMITIES: No joint tenderness, effusion, or edema noted. Course Course Level of Care: Express Care Visit Vital Signs Vital signs: Vital Signs Temperature 36.9 C 02/23/24 14:59 Pulse Rate 89 02/23/24 14:59 Respiratory Rate 20 02/23/24 14:59 Blood Pressure 122/53 L 02/23/24 14:59 Pulse Oximetry 98 02/23/24 14:59 Oxygen Delivery Room Air 02/23/24 14:59 Temperature 36.9 C 02/23/24 14:59 Pulse Rate 89 02/23/24 14:59 Respiratory Rate 20 02/23/24 14:59 Blood Pressure 122/53 L 02/23/24 14:59 Pulse Oximetry 98 02/23/24 14:59 Oxygen Delivery Room Air 02/23/24 14:59 reviewed MDM - URI/Sore Throat MDM Narrative Medical decision making narrative: negative COVID, influenza and strep. Strep culture ordered. Chest x-ray negative for pneumonia. Will put patient with antibiotic due to comorbidities. Patient agrees with plan of care. Nontoxic, no no respiratory distress. Patient is aware of diagnosis, understands and agrees to treatment plan. Anticipatory guidance given. Patient agrees to follow-up as directed and is aware of reasons to seek care at the emergency department. Portions of this record may have been created with voice recognition software Differential Diagnosis Differential diagnosis: Likely upper respiratory infection, otitis media, sinusitis, viral infection, influenza and other ( Pneumonia) Lab Data Labs: Lab Results 02/23/24 02/23/24 Range/Units 15:17 15:18 POC Influenza A Ag Negative (Negative) POC Influenza B Ag Negative (Negative) POC SARS CoV-2 Ag Negative (Negative) POC Grp A Strep Screen Negative (Negative) Discharge Plan Discharge Clinical Impression: Upper respiratory infection with cough and congestion Patient Disposition: Home, Self-Care Condition: Stable Instructions: Antibiotic Form, Acute Cough (ED) Additional Instructions: Your COVID, influenza and strep test were negative today. Your chest x-ray was normal. Take medications as prescribed. Continue using albuterol inhaler as prescribed by her primary care physician. Drink plenty of water and rest. Go to the ER for any worsening of your symptoms. Patient Language: Irish Prescriptions: New doxycycline hyclate 100 mg capsule 100 mg PO BID 7 Days Qty: 14 0RF benzonatate 200 mg capsule 200 mg PO TID PRN (Reason: cough) Qty: 20 0RF prednisone 20 mg tablet 40 mg PO DAILY 5 Days Qty: 10 0RF No Action albuterol sulfate 90 mcg/actuation HFA aerosol inhaler 2 inh INHALATION PRN lamotrigine 100 mg tablet 100 mg PO BID Rx Instructions: 1400 and 2100 levetiracetam 1,000 mg tablet 2,000 mg PO BID lamotrigine 150 mg Tablet 200 mg PO DAILY Rx Instructions: take 150 mg daily in AM fluticasone propion-salmeterol [Advair Diskus] 250-50 mcg/dose Blister With Device 1 ea INHALATION BID ferrous sulfate [Iron (ferrous sulfate)] 325 mg (65 mg iron) Tablet 325 mg PO EVERY OTHER DAY fluorometholone 0.1 % Drops,Suspension 1 drp RIGHT EYE DAILY melatonin 10 mg Tablet 10 mg PO HS Follow-up/Referrals: Earlene,Oralia Quintana [Other] Time of Disposition: 16:28
[2024-02-23 15:19] LABS: EDSTREPNEGPOS1 Negative (Negative)
[2024-02-23 15:20] LABS: EDCOVIDSCREEN Negative (Negative); EDINFLUASCREEN Negative (Negative); EDINFLUBSCREEN Negative (Negative)
== END 2024-02-23 16:32 | disposition home or self-care (01) ==
PROVIDERS: Emergency Provider Nurse Practitioner Family
DX: J06.9 Acute upper respiratory infection, unspecified (principal); Z85.3 Personal history of malignant neoplasm of breast; Z20.822 Contact with and (suspected) exposure to COVID-19
CPT/HCPCS: 71046; 87081; 87426; 87804; 87880; 99213; G0463

== ENCOUNTER 2024-06-13 13:34 | Outpatient (CLI) | payer MEDICARE, SELFPAY ==
--- NOTE | ~2024-06-13 | CT_ITS ---
Clinical Indication: Lung nodule, cough CT Scan of the Chest with Contrast: Technique: Contiguous sections were acquired throughout the chest after intravenous administration of 75 cc of Omnipaque 350. Dose reduction technique was used on this scan by utilizing automated exposu re control and iterative reconstruction technique. The dose-length product (DLP) was 134.99 mGy-cm. Findings: There is no evidence of any significant mediastinal, hilar or axillary lymphadenopathy. There is no f illing defect in the pulmonary arterial tree to suggest pulmonary embolus. There is no evidence of ao rtic dissection or aneurysm. There is no evidence of pleural or pericardial effusion. Scattered subcentimeter peripheral groundglass nodules are present. There is chronic scarring in the right middle lobe and lingula. Images through the upper abdomen reveal no abnormalities. Impression: Several peripheral scattered subcentimeter groundglass pulmonary nodules, most likely benign. Mild scarring at the right middle lobe and lingula. Reviewed, dictated and finalized at [facility]. Impression: Several peripheral scattered subcentimeter groundglass pulmonary nodules, most likely benign. Mild scarring at the right middle lobe and lingula.
[2024-06-13 14:01] LABS: Estimated Glomerular Filt Rate 60
== END 2024-06-13 13:35 | disposition home or self-care (01) ==
LOC: MICIMG 13:36
DX: R91.8 Other nonspecific abnormal finding of lung field (principal); J84.10 Pulmonary fibrosis, unspecified
CPT/HCPCS: 71260; Q9967